=== PATIENT | female | born 1935 | race Caucasian/White ===

== ENCOUNTER 2018-03-10 01:20 | Inpatient (IN) ==
--- NOTE | 2018-03-10 01:30 | Emergency Department Note ---
Disposition Clinical Impression: Dyspnea Dementia Qualifiers: Dementia type: unspecified type Dementia behavioral disturbance: without behavioral disturbance Qualified Code(s): F03.90 - Unspecified dementia without behavioral disturbance Chest pain Qualifiers: Chest pain type: unspecified Qualified Code(s): R07.9 - Chest pain, unspecified Disposition: Admitted As Inpatient Condition: Good Referrals: Sunil Cobb MD [Primary Care Provider] - Forms: ED Satisfaction Letter Time of Disposition: 05:17 [facility] - General Chief Complaint: ED Shortness of Breath/Dyspnea Stated Complaint: chidi Time Seen by Provider: 03/10/18 01:22 Source: patient Mode of arrival: ambulatory Limitations: no limitations Nursing Notes Reviewed: Yes Vital Signs Reviewed: Yes - History of Present Illness Patient presents to the ED via EMS with the chief complaint of chest pain. States that she is been having intermittent retrosternal chest pain over the last couple of days. Unable to further describe. States it just hurts. Also complaining of feeling short of breath. Patient has a history of dementia and is hard of hearing so history is difficult and limited. Patient denies any pain currently. States she has been coughing. No abdominal pain or vomiting. No known fevers. - Related Data Home Medications Medication Instructions Recorded Confirmed Calcium Carbonate/Vitamin D3 1 each PO DAILY 03/20/15 03/20/15 [Calcium 600 + D Tablet] Multivitamin [Flintstones] 1 each PO DAILY 03/20/15 03/20/15 Previous Rx's Medication Instructions Recorded Fluticasone Propionate Nasal 2 spray IN DAILY #1 unit 03/21/15 [Flonase] Omeprazole [PriLOSEC] 20 mg PO DAILY #30 capsule. 03/21/15 Allergies Allergy/AdvReac Type Severity Reaction Status Date / Time No Known Allergies Allergy Verified 03/20/15 08:48 Review of Systems: As reviewed in the HPI. All other systems reviewed are negative or normal. Past Medical History - Past Medical History Attestation: Yes The following information was validated with the patient. 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 - Social History Smoking Status: Former smoker Smokeless Tobacco Status: No Alcohol use: Reports: none Drug use: Reports: none Physical Exam CONSTITUTIONAL: [well appearing in no acute distress] SKIN: [Warm, dry, and intact without rash] EYES: [extraocular movements are grossly intact, clear conjunctiva] HENT: [Normocephalic, atraumatic, moist mucus membranes] NECK: [no obvious swelling, normal range of motion] PULMONARY: [normal chest rise and fall, no respiratory distress or stridor CARDIOVASCULAR: [regular rate, distal extremities are warm and well perfused] GASTROINSTESTINAL: [nondistended, non-tender] GENITOURINARY: [deferred] NEUROLOGIC: [normal speech, moves all extremities, GCS 15, alert and oriented 2 ] MUSCULOSKELETAL: [no gross deformities, atraumatic] PSYCHIATRIC: [normal mood and affect] Course - Reevaluation(s) Reevaluation #1: patient workup looks ok. Will admit for further eval including likely echo. Vital Signs Temperature 98.2 F 03/10/18 01:23 Pulse Rate 77 03/10/18 01:23 Respiratory Rate 16 03/10/18 01:23 Blood Pressure 157/87 03/10/18 01:23 O2 Sat by Pulse Oximetry 97 03/10/18 01:23 Temperature 98.2 F 03/10/18 01:23 Pulse Rate 67 03/10/18 04:42 Respiratory Rate 17 03/10/18 04:42 Blood Pressure 169/80 03/10/18 04:42 O2 Sat by Pulse Oximetry 96 03/10/18 04:42 Oxygen Delivery Oxygen Delivery Room Air Shortness of Breath/Dyspnea - Medical Records Medical records reviewed: Yes I reviewed the patient's medical records. - Lab Data Lab results reviewed: Yes I reviewed the patient's lab results. Result diagrams: 03/10/18 01:53 03/10/18 01:53 Lab Results 03/10/18 03/10/18 03/10/18 Range/Units 01:53 01:53 01:53 WBC 5.3 (4.3-11.1) K/mcL RBC 3.88 (3.82-4.97) M/mcL Hgb 11.8 (11.5-15.4) g/dL Hct 35.3 (35.3-44.9) % MCV 91.0 (83.0-100.0) fL MCH 30.4 (28.0-33.3) pg MCHC 33.4 (31.6-35.5) g/dL RDW 13.2 (11.5-14.5) % Plt Count 250 (140-400) K/mcL MPV 9.0 L (9.4-12.4) fL Immature Gran % 0.4 (0-4) % Seg Neutrophils % 63.2 % Lymphocytes % 26.7 % Monocytes % 6.8 % Eosinophils % 2.5 % Basophils % 0.4 % Neutrophils # 3.3 (1.6-8.9) K/mcL Lymphocytes # 1.4 (0.6-4.6) K/mcL Monocytes # 0.4 (0.0-1.3) K/mcL Eosinophils # 0.1 (0.0-0.6) K/mcL Basophils # 0.0 (0.0-0.2) K/mcL PT 11.5 (9.4-12.1) Seconds INR 1.0 APTT 30.9 (26.0-36.0) Seconds Sodium 140 (136-145) mEq/L Potassium 3.2 L (3.5-5.1) mEq/L Chloride 107 (98-107) mEq/L Carbon Dioxide 25 (23-29) mEq/L BUN 13 (8-23) mg/dL Creatinine 0.70 (0.60-1.20) mg/dL Est GFR ( Amer) > 60 (> 60) Est GFR (Non-Af Amer) > 60 (> 60) BUN/Creatinine Ratio 19 (6-26) Glucose 97 (70-105) mg/dL Calculated Osmolality 290 (280-300) Lactic Acid (0.5-2.2) mmol/L Calcium 9.1 (8.6-10.3) mg/dL Troponin I < 0.03 (< 0.04) ng/mL B-Natriuretic Peptide (Less than 100) pg/mL Urine Color (Yellow) Urine Clarity (Clear) Urine pH (5.0-8.0) pH Units Ur Specific [place] (1.010-1.025) Urine Protein (Neg-Trace) mg/dL Urine Glucose (UA) (Normal) mg/dL Urine Ketones (Negative) mg/dL Urine Blood (Negative) Urine Nitrite (Negative) Urine Bilirubin (Negative) Urine Urobilinogen (Normal) mg/dL Ur Leukocyte Esterase (Negative) Urine Microscopic RBC (0-3) per hpf Urine Microscopic WBC (0-3) per hpf Ur Squamous Epith Cells (None-Few) per lpf Urine Bacteria (None-Few) per hpf Hyaline Casts (None-Few) per lpf Ur Culture Indicated? (NO) 03/10/18 03/10/18 03/10/18 Range/Units 01:53 01:53 02:38 WBC (4.3-11.1) K/mcL RBC (3.82-4.97) M/mcL Hgb (11.5-15.4) g/dL Hct (35.3-44.9) % MCV (83.0-100.0) fL MCH (28.0-33.3) pg MCHC (31.6-35.5) g/dL RDW (11.5-14.5) % Plt Count (140-400) K/mcL MPV (9.4-12.4) fL Immature Gran % (0-4) % Seg Neutrophils % % Lymphocytes % % Monocytes % % Eosinophils % % Basophils % % Neutrophils # (1.6-8.9) K/mcL Lymphocytes # (0.6-4.6) K/mcL Monocytes # (0.0-1.3) K/mcL Eosinophils # (0.0-0.6) K/mcL Basophils # (0.0-0.2) K/mcL PT (9.4-12.1) Seconds INR APTT (26.0-36.0) Seconds Sodium (136-145) mEq/L Potassium (3.5-5.1) mEq/L Chloride (98-107) mEq/L Carbon Dioxide (23-29) mEq/L BUN (8-23) mg/dL Creatinine (0.60-1.20) mg/dL Est GFR ( Amer) (> 60) Est GFR (Non-Af Amer) (> 60) BUN/Creatinine Ratio (6-26) Glucose (70-105) mg/dL Calculated Osmolality (280-300) Lactic Acid 0.8 (0.5-2.2) mmol/L Calcium (8.6-10.3) mg/dL Troponin I (< 0.04) ng/mL B-Natriuretic Peptide 140 H (Less than 100) pg/mL Urine Color Yellow (Yellow) Urine Clarity Clear (Clear) Urine pH 6.0 (5.0-8.0) pH Units Ur Specific [place] 1.016 (1.010-1.025) Urine Protein Negative (Neg-Trace) mg/dL Urine Glucose (UA) Normal (Normal) mg/dL Urine Ketones Trace H (Negative) mg/dL Urine Blood Trace H (Negative) Urine Nitrite Negative (Negative) Urine Bilirubin Negative (Negative) Urine Urobilinogen Normal (Normal) mg/dL Ur Leukocyte Esterase Small H (Negative) Urine Microscopic RBC 5-15 H (0-3) per hpf Urine Microscopic WBC 5-15 H (0-3) per hpf Ur Squamous Epith Cells Moderate H (None-Few) per lpf Urine Bacteria None Seen (None-Few) per hpf Hyaline Casts None Seen (None-Few) per lpf Ur Culture Indicated? YES A (NO) - Radiology Data Radiology results reviewed: Yes I reviewed the patient's radiology results. - EKG Data EKG attestation: Yes I reviewed and interpreted this EKG. EKG results narrative: Sinus rhythm, rate 73, ST segment elevation anteriorly that is similar in morphology to previous consistent with LVH, ventricular conduction delay
[2018-03-10 02:06] LABS: Basophils % 0.4 %; Eosinophils # 0.1 K/mcL (0.0-0.6); Eosinophils % 2.5 %; Hematocrit 35.3 % (35.3-44.9); Hemoglobin 11.8 g/dL (11.5-15.4); Immature Granulocytes % 0.4 % (0-4); Lymphocytes # 1.4 K/mcL (0.6-4.6); Lymphocytes % 26.7 %; Mean Corpuscular HGB Conc 33.4 g/dL (31.6-35.5); Mean Corpuscular Hemoglobin 30.4 pg (28.0-33.3); Monocytes # 0.4 K/mcL (0.0-1.3); Monocytes % 6.8 %; Neutrophils # 3.3 K/mcL (1.6-8.9); Platelet Count 250 K/mcL (140-400); Red Blood Count 3.88 M/mcL (3.82-4.97); Red Cell Distribution Width 13.2 % (11.5-14.5); Segmented Neutrophils % 63.2 %
[2018-03-10 02:11] LABS: Prothrombin Time 11.5 Seconds (9.4-12.1)
[2018-03-10 02:14] LABS: Activated Partial Thrombo Time 30.9 Seconds (26.0-36.0)
[2018-03-10 02:28] LABS: BUN/Creatinine Ratio 19 (6-26); Blood Urea Nitrogen 13 mg/dL (8-23); Calcium 9.1 mg/dL (8.6-10.3); Carbon Dioxide 25 mEq/L (23-29); Chloride 107 mEq/L (98-107); Glucose 97 mg/dL (70-105); Osmolality,Calculated 290 (280-300); Potassium 3.2 mEq/L (3.5-5.1); Sodium 140 mEq/L (136-145); eGFR For Non-African Americans > 60 (> 60)
[2018-03-10 02:29] LABS: Troponin I < 0.03 ng/mL (< 0.04)
[2018-03-10 02:47] LABS: Bilirubin,Urine Negative (Negative); Blood,Urine Trace (Negative); Clarity,Urine Clear (Clear); Color,Urine Yellow (Yellow); Glucose,Urine (UA) Normal (Normal); Ketones,Urine Trace mg/dL (Negative); Leukocyte Esterase,Urine Small (Negative); Nitrite,Urine Negative (Negative); Protein,Urine Negative (Neg-Trace); Specific Gravity,Urine 1.016 (1.010-1.025); Urobilinogen,Urine Normal (Normal)
[2018-03-10 02:50] LABS: Bacteria,Urine None Seen per hpf (None-Few); Hyaline Casts,Urine None Seen per lpf (None-Few); Squamous Epithelial Cell,Urine Moderate per lpf (None-Few)
[2018-03-10] MEDS ORDERED: Naloxone 0.4 MG/ML INJ IVP PRN (06:07)
--- NOTE | 2018-03-10 06:09 | Emergency Department Note ---
Disposition Clinical Impression: Dyspnea Dementia Qualifiers: Dementia type: unspecified type Dementia behavioral disturbance: without behavioral disturbance Qualified Code(s): F03.90 - Unspecified dementia without behavioral disturbance Chest pain Qualifiers: Chest pain type: unspecified Qualified Code(s): R07.9 - Chest pain, unspecified Disposition: Admitted As Inpatient Condition: Good General Adult HPI - General Chief complaint: ED Shortness of Breath/Dyspnea Stated complaint: chidi Time Seen by Provider: 03/10/18 01:22 Source: patient Mode of arrival: ambulatory Limitations: no limitations Nursing Notes Reviewed: Yes Vital Signs Reviewed: Yes - History of Present Illness Pain Scale: 0 - Related Data Home Medications Medication Instructions Recorded Confirmed Calcium Carbonate/Vitamin D3 1 each PO DAILY 03/20/15 03/20/15 [Calcium 600 + D Tablet] Multivitamin [Flintstones] 1 each PO DAILY 03/20/15 03/20/15 Previous Rx's Medication Instructions Recorded Fluticasone Propionate Nasal 2 spray IN DAILY #1 unit 03/21/15 [Flonase] Omeprazole [PriLOSEC] 20 mg PO DAILY #30 capsule. 03/21/15 Allergies Allergy/AdvReac Type Severity Reaction Status Date / Time No Known Allergies Allergy Verified 03/20/15 08:48 Past Medical History - Past Medical History Medical history: Reports: dementia, osteoporosis, other Surgical history: Reports: hip replacement Psychiatric history: Reports: no psych history [employer] history: Reports: no [employer] history - Social History Smoking Status: Former smoker Smokeless Tobacco Status: No Alcohol use: Reports: none Drug use: Reports: none Physical Exam - General Limitations: no limitations General appearance: alert, in no apparent distress Course Vital Signs Temperature 98.2 F 03/10/18 01:23 Pulse Rate 77 03/10/18 01:23 Respiratory Rate 16 03/10/18 01:23 Blood Pressure 157/87 03/10/18 01:23 O2 Sat by Pulse Oximetry 97 03/10/18 01:23 Temperature 98.2 F 03/10/18 01:23 Pulse Rate 67 03/10/18 04:42 Respiratory Rate 15 03/10/18 05:39 Blood Pressure 143/67 03/10/18 05:39 O2 Sat by Pulse Oximetry 96 03/10/18 04:42 Oxygen Delivery Oxygen Delivery Room Air Medical Decision Making - Medical Records Medical records reviewed: Yes I reviewed the patient's medical records. - Lab Data Lab results reviewed: Yes I reviewed the patient's lab results. Result diagrams: 03/10/18 01:53 03/10/18 01:53 Lab Results 03/10/18 03/10/18 03/10/18 Range/Units 01:53 01:53 01:53 WBC 5.3 (4.3-11.1) K/mcL RBC 3.88 (3.82-4.97) M/mcL Hgb 11.8 (11.5-15.4) g/dL Hct 35.3 (35.3-44.9) % MCV 91.0 (83.0-100.0) fL MCH 30.4 (28.0-33.3) pg MCHC 33.4 (31.6-35.5) g/dL RDW 13.2 (11.5-14.5) % Plt Count 250 (140-400) K/mcL MPV 9.0 L (9.4-12.4) fL Immature Gran % 0.4 (0-4) % Seg Neutrophils % 63.2 % Lymphocytes % 26.7 % Monocytes % 6.8 % Eosinophils % 2.5 % Basophils % 0.4 % Neutrophils # 3.3 (1.6-8.9) K/mcL Lymphocytes # 1.4 (0.6-4.6) K/mcL Monocytes # 0.4 (0.0-1.3) K/mcL Eosinophils # 0.1 (0.0-0.6) K/mcL Basophils # 0.0 (0.0-0.2) K/mcL PT 11.5 (9.4-12.1) Seconds INR 1.0 APTT 30.9 (26.0-36.0) Seconds Sodium 140 (136-145) mEq/L Potassium 3.2 L (3.5-5.1) mEq/L Chloride 107 (98-107) mEq/L Carbon Dioxide 25 (23-29) mEq/L BUN 13 (8-23) mg/dL Creatinine 0.70 (0.60-1.20) mg/dL Est GFR ( Amer) > 60 (> 60) Est GFR (Non-Af Amer) > 60 (> 60) BUN/Creatinine Ratio 19 (6-26) Glucose 97 (70-105) mg/dL Calculated Osmolality 290 (280-300) Lactic Acid (0.5-2.2) mmol/L Calcium 9.1 (8.6-10.3) mg/dL Troponin I < 0.03 (< 0.04) ng/mL B-Natriuretic Peptide (Less than 100) pg/mL Urine Color (Yellow) Urine Clarity (Clear) Urine pH (5.0-8.0) pH Units Ur Specific [place] (1.010-1.025) Urine Protein (Neg-Trace) mg/dL Urine Glucose (UA) (Normal) mg/dL Urine Ketones (Negative) mg/dL Urine Blood (Negative) Urine Nitrite (Negative) Urine Bilirubin (Negative) Urine Urobilinogen (Normal) mg/dL Ur Leukocyte Esterase (Negative) Urine Microscopic RBC (0-3) per hpf Urine Microscopic WBC (0-3) per hpf Ur Squamous Epith Cells (None-Few) per lpf Urine Bacteria (None-Few) per hpf Hyaline Casts (None-Few) per lpf Ur Culture Indicated? (NO) 03/10/18 03/10/18 03/10/18 Range/Units 01:53 01:53 02:38 WBC (4.3-11.1) K/mcL RBC (3.82-4.97) M/mcL Hgb (11.5-15.4) g/dL Hct (35.3-44.9) % MCV (83.0-100.0) fL MCH (28.0-33.3) pg MCHC (31.6-35.5) g/dL RDW (11.5-14.5) % Plt Count (140-400) K/mcL MPV (9.4-12.4) fL Immature Gran % (0-4) % Seg Neutrophils % % Lymphocytes % % Monocytes % % Eosinophils % % Basophils % % Neutrophils # (1.6-8.9) K/mcL Lymphocytes # (0.6-4.6) K/mcL Monocytes # (0.0-1.3) K/mcL Eosinophils # (0.0-0.6) K/mcL Basophils # (0.0-0.2) K/mcL PT (9.4-12.1) Seconds INR APTT (26.0-36.0) Seconds Sodium (136-145) mEq/L Potassium (3.5-5.1) mEq/L Chloride (98-107) mEq/L Carbon Dioxide (23-29) mEq/L BUN (8-23) mg/dL Creatinine (0.60-1.20) mg/dL Est GFR ( Amer) (> 60) Est GFR (Non-Af Amer) (> 60) BUN/Creatinine Ratio (6-26) Glucose (70-105) mg/dL Calculated Osmolality (280-300) Lactic Acid 0.8 (0.5-2.2) mmol/L Calcium (8.6-10.3) mg/dL Troponin I (< 0.04) ng/mL B-Natriuretic Peptide 140 H (Less than 100) pg/mL Urine Color Yellow (Yellow) Urine Clarity Clear (Clear) Urine pH 6.0 (5.0-8.0) pH Units Ur Specific [place] 1.016 (1.010-1.025) Urine Protein Negative (Neg-Trace) mg/dL Urine Glucose (UA) Normal (Normal) mg/dL Urine Ketones Trace H (Negative) mg/dL Urine Blood Trace H (Negative) Urine Nitrite Negative (Negative) Urine Bilirubin Negative (Negative) Urine Urobilinogen Normal (Normal) mg/dL Ur Leukocyte Esterase Small H (Negative) Urine Microscopic RBC 5-15 H (0-3) per hpf Urine Microscopic WBC 5-15 H (0-3) per hpf Ur Squamous Epith Cells Moderate H (None-Few) per lpf Urine Bacteria None Seen (None-Few) per hpf Hyaline Casts None Seen (None-Few) per lpf Ur Culture Indicated? YES A (NO) - Radiology Data Radiology results reviewed: Yes I reviewed the patient's radiology results. Chest X-Ray 03/10/18 01:27 IMPRESSION: No acute disease. D/ / Ramirez Arrieta MD / Ramirez Arrieta MD Interpreting Provider: Ramirez Arrieta MD - EKG Data EKG #1 EKG attestation: Yes I reviewed and interpreted this EKG. EKG results narrative: EKG shows a normal sinus rhythm with ventricular rate is 73. LVH with anterior ST segment elevation which is unchanged from prior EKG dated 04/10/2017. Attestation Statement - Attestation Attestation: I, Johnie Abreu MD, personally evaluated this patient and discussed their management with the resident physician. I reviewed the resident's note and agree with the documented findings, medical decision making, and plan of care. 82-year-old female presents to the emergency department with a complaint of having some increased shortness of breath and intermittent substernal chest pains for the past few days. No radiation of the pain. There has been a mild cough. No sputum. No fever. Chest pain comes and goes and does not seem to be related to exertion. On examination patient is a well-developed thin elderly female in no acute distress. She is alert and oriented but seems pleasantly confused. She is hard of hearing. There is no cyanosis or diaphoresis. Chest is nontender to palpation. Breath sounds are decreased but clear and equal bilaterally. Heart regular rate and rhythm. Abdomen soft and nontender with present bowel sounds. Labs reviewed. Troponin normal. Mildly elevated BNP. Chest x-ray negative. EKG shows no acute changes. The hospitalist, Dr. Saba, was consulted and accepted admission of the patient.
--- NOTE | 2018-03-10 06:24 | Internal Med History&Physical ---
Date of Encounter: 03/20/18 Time of Encounter: 06:15 Internal Medicine - H&P: HPI Chief complaint: Difficulty Breathing History of present illness: Ms. Eric is a 82 year old female with reported past medical history of dementia and osteoporosis. Patient is a poor historian given her baseline dementia and supporting medical records are sparse. Per the patient she states that she has been having intermittent episodes of difficulty breathing. She feels that at times her nose and nasal passages feel stuffed. However when asked if these episodes of dyspnea occur when she breathes through her nose versus her mouth, she says it is primarily when she breathes through her nose. Patient reportedly lives alone at home and had difficulty breathing earlier this evening and subsequently called EMS. Per ER nurse, when they arrived there was no one home and the patient was saturating at 99% on room air. Patient otherwise denies any cough, fever, chills, chest pain. Further denies any abdominal pain nausea, vomiting, diarrhea, dysuria. Patient states that her daughter works as a nurse in urgent care but is currently on vacation. Per the ER, there was reports of chest pain however the patient denied this. Review of her chest x-ray was unchanged from previous. Denies any previous history of smoking, alcohol or drug use. Patient uses a walker to ambulate. Past Med Surg Social Fam HX - Past Medical History Medical history: dementia, osteoporosis, other Additional medical history: broken wrist Psychiatric history: no psych history - Past Surgical History Surgical History: hip replacement Additional surgical history: unable to verbalize her surgical history - Social History Smoking Status: Former smoker Smokeless Tobacco Status: No Alcohol use: none Drug use: none - Family History Father Living Status: Hx Family Cardiac Disorders: Yes Internal Medicine - H&P: Meds Multivitamin [Flintstones] 1 tab PO DAILY 03/20/15 [History] Calcium Carb, Citrate/Vit D3 [Calcium + D3 ER Tablet] 1 tab PO DAILY 03/10/18 [ History] Haloperidol [Haldol] 0.5 mg PO BID PRN 7 Days #15 tablet 03/17/18 [Rx] Metoprolol [Lopressor] 12.5 mg PO BID tablet 03/17/18 [Rx] amLODIPine [Norvasc] 10 mg PO DAILY tablet 03/17/18 [Rx] risperiDONE [RisperDAL] 0.25 mg PO 0900 tablet 03/17/18 [Rx] risperiDONE [RisperDAL] 0.5 mg PO 1700 tablet 03/17/18 [Rx] 3 Allergy/AdvReac Type Severity Reaction Status Date / Time No Known Allergies Allergy Verified 03/20/15 08:48 All Systems PM: A 10-system review of systems was performed and is negative for pertinent findings except as documented above in the HPI. - Constitutional Constitutional: no chills, no fever(s), no night sweats - EENT Eyes: no change in vision, no discharge, no pain, no photophobia Ears: no ear discharge, no ear pain, no tinnitus Nose, mouth and throat: no dysphagia, no nasal discharge, no neck pain, no sore throat - Cardiovascular Cardiovascular ROS IM: no chest pain, no diaphoresis, no dyspnea, no lightheadedness, no palpitations, no syncope - Respiratory Respiratory: no cough, no dyspnea, no wheezing, no excessive phlegm production - Gastrointestinal Gastrointestinal: no abdominal pain, no diarrhea, no hematemesis, no hematochezia, no melena, no nausea, no vomiting - Genitourinary Genitourinary: no change in urinary stream, no dysuria, no flank pain, no hematuria - Musculoskeletal Musculoskeletal ROS IM: no numbness, no tingling - Integumentary Integumentary IM: no rash, no unusual bruising - Neurological Neurological ROS: no confusion, no convulsions, no focal weakness, no numbness, no tingling, no tremor(s) - Hematologic/Lymphatic Hematologic/Lymphatic: no easy bruising - Constitutional Exam: General: Pleasant elderly female lying in bed in no acute distress. Alert and oriented 1-2 Skin:Normal color, no rash, no lesions. HEENT:EOM, pupils equal, round and reactive. Cardiovascular:Normal S1 & S2, no rubs, 3/6 systolic murmur best appreciated in the fifth intercostal space. No JVD. Pulse regular. Lungs:Normal breath sounds, no wheezes or crackles. Abdomen:Soft, mildly distended, non-tender, no rigidity. Extremities:No deformity, no edema or tenderness, no joint swelling or clubbing. Neurological:Normal cognition and motor skills. Pulses:Carotid and radial pulses normal +2. Rest of the physical exam is non contributory Internal Med - H&P Results - Labs CBC & Chem 7: 08/24/18 04:22 03/14/18 04:22 - Assessment and plan (1) Dyspnea Status: Resolved Assessment and plan: No evidence of any acute lung disease. Lung exam and Chest x-ray normal. Patient satting 99% on room air. Systolic murmur heard best in the apex region a heart, there may be an underlying mitral valve regurgitation in the setting of LVH with high voltage QRS. Patient however denies any dyspnea with change in position. Patient likely complaining of upper airway congestion based on history, will order fluticasone nasal spray. Qualifiers: Dyspnea type: shortness of breath Qualified Code(s): R06.02 - Shortness of breath; R06.00 - Dyspnea, unspecified; R06.01 - Orthopnea (2) Chest pain Status: Ruled-out Assessment and plan: ER reports chest pain. However, patient denies any chest pain. No EKG changes were noted when compared to previous EKG. High voltage QRS complexes possibly suggestive of underlying left ventricular hypertrophy. The patients blood pressure was found to be elevated of 189/99. Possible mitral regurgitation appreciated on physical exam may be contributory. Patient may need outpatient echocardiogram Qualifiers: Chest pain type: unspecified Qualified Code(s): R07.9 - Chest pain, unspecified (3) Dementia Status: Chronic Assessment and plan: History of baseline dementia. Patient currently living at home alone. Given her condition she may not be a safe discharge and needs to be discussed with family. Will obtain director social service consult to evaluate living conditions in terms of safety. 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 Patient not currently not on any antihypertensives per records. We will start her on low-dose amlodipine and monitor. Qualifiers: Hypertension type: essential hypertension Qualified Code(s): I10 - Essential (primary) hypertension (5) Hypokalemia Status: Resolved - Time Spent With Patient Total time spent is greater than 50% in coordination of care (as documented) at patient's floor/unit and/or counseling patient: - Constitutional Vitals: Temp Pulse Resp BP Pulse Ox 98.2 F 67 15 143/67 96 03/10/18 01:23 03/10/18 04:42 03/10/18 05:39 03/10/18 05:39 03/10/18 04:42 Exam: General: Pleasant elderly female lying in bed in no acute distress. Alert and oriented 1-2 Skin:Normal color, no rash, no lesions. HEENT:EOM, pupils equal, round and reactive. Cardiovascular:Normal S1 & S2, no rubs, 3/6 systolic murmur best appreciated in the fifth intercostal space. No JVD. Pulse regular. Lungs:Normal breath sounds, no wheezes or crackles. Abdomen:Soft, mildly distended, non-tender, no rigidity. Extremities:No deformity, no edema or tenderness, no joint swelling or clubbing. Neurological:Normal cognition and motor skills. Pulses:Carotid and radial pulses normal +2. Rest of the physical exam is non contributory
[2018-03-10] MEDS: Potassium Citrate 10 MEQ TABLET.ER PO SCH (09:35)
[2018-03-10] MEDS: amLODIPine 5 MG TABLET PO SCH (09:35)
[2018-03-10] MEDS: Fluticasone Propionate Nasal 50 MCG/SPRAY BOTTLE NS SCH (09:35)
--- NOTE | 2018-03-10 15:39 | Electrocardiograph Report ---
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
--- NOTE | 2018-03-10 20:28 | Event Note ---
Date of Encounter: 03/10/18 Time of Encounter: 11:00 Patient seen and evaluated by nocturnalist earlier this morning and also by myself Patient is an 82-year-old female who presents breath shortness breath and chest pain here for ACS rule out; troponins negative and echocardiogram shows LVEF of 60% with mild left ventricular diastolic dysfunction. Nuclear medicine stress test ordered for ACS rule out. Physical therapy also consulted for home safety.
[2018-03-11] MEDS ORDERED: Haloperidol Lactate 5 MG/ML VIAL IVP ONE (01:46)
[2018-03-11] MEDS ORDERED: Regadenoson 0.4 MG/5 ML SYRINGE IVP ONE (05:29)
[2018-03-11 05:38] LABS: Hematocrit 38.4 % (35.3-44.9); Hemoglobin 12.6 g/dL (11.5-15.4); Mean Corpuscular HGB Conc 32.8 g/dL (31.6-35.5); Mean Corpuscular Hemoglobin 30.3 pg (28.0-33.3); Mean Corpuscular Volume 92.3 fL (83.0-100.0); Mean Platelet Volume 9.9 fL (9.4-12.4); Platelet Count 248 K/mcL (140-400); Red Blood Count 4.16 M/mcL (3.82-4.97); Red Cell Distribution Width 13.4 % (11.5-14.5)
[2018-03-11 06:07] LABS: Alanine Aminotransferase 10 Units/L (7-52); Albumin/Globulin Ratio 1.3 (1.1-2.2); Alkaline Phosphatase 67 Units/L (34-104); Aspartate Amino Transferase 18 Units/L (13-39); BUN/Creatinine Ratio 27 (6-26); Bilirubin,Total 0.8 mg/dL (0.3-1.0); Blood Urea Nitrogen 19 mg/dL (8-23); Calcium 9.3 mg/dL (8.6-10.3); Carbon Dioxide 23 mEq/L (23-29); Chloride 106 mEq/L (98-107); Globulin 3.2 g/dL (2.4-3.5); Glucose 129 mg/dL (70-105); Osmolality,Calculated 290 (280-300); Potassium 3.8 mEq/L (3.5-5.1); Sodium 138 mEq/L (136-145); Total Protein 7.2 g/dL (6.4-8.9); eGFR For Non-African Americans > 60 (> 60)
[2018-03-11] MEDS: Cholecalciferol (D-3) 1,000 UNIT TABLET PO SCH (08:08)
[2018-03-11] MEDS: amLODIPine 5 MG TABLET PO SCH ×2 (08:08→16:43)
[2018-03-11] MEDS: Fluticasone Propionate Nasal 50 MCG/SPRAY BOTTLE NS SCH (08:08)
[2018-03-11] MEDS: Potassium Citrate 10 MEQ TABLET.ER PO SCH (08:08)
[2018-03-11] MEDS: Multivit/Ca/Min/Fe/FA 1 TAB TABLET PO SCH (08:08)
--- NOTE | 2018-03-11 16:32 | Internal Med Progress Note ---
Hospitalist Progress Note - Encounter Date of Encounter: 03/11/18 Time of Encounter: 09:45 - Subjective Interval History: Patient reports feeling well. No chest pain or shortness of breath, feels at baseline currently. Unable to provide detailed history due to underlying dementia and memory issues. Plan of care discussed with patient's son at bedside. - Exam Vitals: Temp Pulse Resp BP Pulse Ox 97.8 F 93 16 197/91 96 03/11/18 15:06 03/11/18 15:06 03/11/18 15:06 03/11/18 15:06 03/11/18 15:06 Exam: General: Frail elderly female sitting up in bed in no acute distress Chest: Normal thoracic expansion. Normal breath sounds. Clear to auscultation. Heart: Normal S1 & S2; rhythmic. No rubs or murmurs. Abdomen: Non-distended, soft and nontender Neurological: Awake, alert and oriented to person but not to place and time. No focal deficits. Short term memory impairment; - Assessment and Plan (1) Chest pain Current Visit: Yes Status: Ruled-out Assessment and Plan: Patient apparently reported chest pain in the emergency room, did not report to admitting hospitalist or to me. Currently not noted to be in distress. Telemetry and serial troponins unremarkable. Refused nuclear stress test, will defer this at this time. (2) Dementia Current Visit: Yes Status: Chronic Assessment and Plan: Patient seems to have underlying dementia with significant memory impairment, confusion and hallucinations. She lives alone at home at this time. Discussed with son, who is very concerned about her safety. There have been several instances of patient wandering outside of her home, confused and staggering and the son has received calls from the oil field worker several times. She is also not oriented to time and place. She has hallucinations about some men raping her last night in the hospital. Physical and occupational therapy evaluation. director of casework services consulted for possible placement for patient safety. (3) Dyspnea Current Visit: Yes Status: Acute Assessment and Plan: Uncertain etiology. Does not have history of COPD/asthma/CHF. Does not follow with PCP, not on any home medications. Per previous records, patient has chronic issues with postnasal drip and possibly sinus problems for which she needs outpatient ENT follow-up. She is currently breathing well, saturating well on room air. Continue to monitor closely. (4) Hypertension Current Visit: Yes Status: Chronic Assessment and Plan: Patient is noncompliant with medications. Noted to have uncontrolled hypertension. Started on Norvasc but continues to have high blood pressure. We will start low-dose metoprolol. Will use when necessary IV hydralazine for appropriate blood pressure control. (5) Hypokalemia Current Visit: Yes Status: Resolved DVT Prophylaxis: On subcutaneous heparin - Time Spent with Patient Total time spent is greater than 50% in coordination of care (as documented) at patient's floor/unit and/or counseling patient: Plan of Care Discussed with: family Internal Medicine: Result - Labs CBC & Chem 7: 03/11/18 04:46 03/11/18 04:46 Labs: Short CBC 03/11/18 Range/Units 04:46 WBC 7.7 (4.3-11.1) K/mcL Hgb 12.6 (11.5-15.4) g/dL Hct 38.4 (35.3-44.9) % Plt Count 248 (140-400) K/mcL BMP 03/11/18 04:46 Sodium 138 Potassium 3.8 Chloride 106 Carbon Dioxide 23 BUN 19 Creatinine 0.70 Glucose 129 H Calcium 9.3 Liver Function 03/11/18 Range/Units 04:46 Total Bilirubin 0.8 (0.3-1.0) mg/dL AST 18 (13-39) Units/L ALT 10 (7-52) Units/L Alkaline Phosphatase 67 (34-104) Units/L Albumin 4.0 (3.5-5.7) g/dL - ABG Interpretation ABG results: PT/INR, D-dimer PT 11.5 Seconds (9.4-12.1) 03/10/18 01:53 Consult Discharge Plan - Plan Referrals: Sunil Cobb MD [Primary Care Provider] - (1) Chest pain Qualifiers: Chest pain type: unspecified Qualified Code(s): R07.9 - Chest pain, unspecified (2) Dementia Qualifiers: Dementia type: Alzheimer's disease Alzheimer's disease onset: late-onset Dementia behavioral disturbance: with behavioral disturbance Qualified Code(s) : G30.1 - Alzheimer's disease with late onset; F02.81 - Dementia in other diseases classified elsewhere with behavioral disturbance (3) Dyspnea Qualifiers: Dyspnea type: shortness of breath Qualified Code(s): R06.02 - Shortness of breath; R06.00 - Dyspnea, unspecified; R06.01 - Orthopnea (4) Hypertension Qualifiers: Hypertension type: essential hypertension Qualified Code(s): I10 - Essential (primary) hypertension
[2018-03-11] MEDS: *HR* Heparin 5,000 UNIT/ML VIAL SQ SCH (16:53)
[2018-03-11] MEDS ORDERED: *HR* LORazepam 2 MG/ML VIAL IVP ONE (17:14)
[2018-03-11] MEDS ORDERED: Ziprasidone injection 20 MG/ML VIAL IM ONE (17:50)
[2018-03-11] MEDS ORDERED: *HR* LORazepam 0.5 MG TABLET PO ONE (21:40)
[2018-03-12] MEDS: *HR* Heparin 5,000 UNIT/ML VIAL SQ SCH ×2 (05:49→18:39)
[2018-03-12] MEDS: Fluticasone Propionate Nasal 50 MCG/SPRAY BOTTLE NS SCH (09:04)
[2018-03-12] MEDS: Cholecalciferol (D-3) 1,000 UNIT TABLET PO SCH (09:09)
[2018-03-12] MEDS: Multivit/Ca/Min/Fe/FA 1 TAB TABLET PO SCH (09:09)
[2018-03-12] MEDS: amLODIPine 5 MG TABLET PO SCH (09:09)
--- NOTE | 2018-03-12 15:56 | Internal Med Progress Note ---
Hospitalist Progress Note - Encounter Date of Encounter: 03/12/18 Time of Encounter: 10:00 - Subjective Interval History: Per RN notes, has been extremely agitated and combative yesterday, slapped the nursing staff, until she received Geodon, after which she settled down; she is with 1:1 sitter now, but noted to be calm and sitting up in bed; tolerates diet; denies complaints; awaiting rehab placement; - Exam Vitals: Temp Pulse Resp BP Pulse Ox 98.6 F 84 16 146/91 95 03/12/18 08:33 03/12/18 08:33 03/12/18 08:33 03/12/18 08:33 03/12/18 08:33 Exam: General: Frail elderly female sitting up in bed in no acute distress Chest: Normal thoracic expansion. Normal breath sounds. Clear to auscultation. Heart: Normal S1 & S2; rhythmic. No rubs or murmurs. Abdomen: Non-distended, soft and nontender Neurological: Awake, alert and oriented to person but not to place and time. No focal deficits. Short term memory impairment; - Assessment and Plan (1) Chest pain Current Visit: Yes Status: Ruled-out (2) Dementia Current Visit: Yes Status: Chronic Assessment and Plan: Patient seems to have underlying dementia with significant memory impairment, confusion and hallucinations. She lives alone at home at this time. She is also not oriented to time and place. She has frequent hallucinations, delusions , and aggressive behaviour; continue supportive care, 1:1 sitter for safety, will start low dose Risperidone ; Physical and occupational therapy evaluation recommends home with 24hour supervision, which is not an option for this patient. She requires placement in a closed unit due to h/o- wandering and confusion. business services manager on board for placement for patient safety. (3) Dyspnea Current Visit: Yes Status: Resolved Assessment and Plan: Uncertain etiology. Does not have history of COPD/asthma/CHF. Does not follow with PCP, not on any home medications. Per previous records, patient has chronic issues with postnasal drip and possibly sinus problems for which she needs outpatient ENT follow-up. She is currently breathing well, saturating well on room air. Continue to monitor closely. (4) Hypertension Current Visit: Yes Status: Chronic Assessment and Plan: Patient is noncompliant with medications. BP is much better controlled; continue current regimen; Will use when necessary IV hydralazine for appropriate blood pressure control. (5) Hypokalemia Current Visit: Yes Status: Resolved DVT Prophylaxis: On subcutaneous heparin - Time Spent with Patient Total time spent is greater than 50% in coordination of care (as documented) at patient's floor/unit and/or counseling patient: Plan of Care Discussed with: case management Internal Medicine: Result - Labs CBC & Chem 7: 03/11/18 04:46 03/11/18 04:46 - ABG Interpretation ABG results: PT/INR, D-dimer PT 11.5 Seconds (9.4-12.1) 03/10/18 01:53 Consult Discharge Plan - Plan Referrals: Sunil Cobb MD [Primary Care Provider] - (1) Chest pain Qualifiers: Chest pain type: unspecified Qualified Code(s): R07.9 - Chest pain, unspecified (2) Dementia Qualifiers: Dementia type: Alzheimer's disease Alzheimer's disease onset: late-onset Dementia behavioral disturbance: with behavioral disturbance Qualified Code(s) : G30.1 - Alzheimer's disease with late onset; F02.81 - Dementia in other diseases classified elsewhere with behavioral disturbance (3) Dyspnea Qualifiers: Dyspnea type: shortness of breath Qualified Code(s): R06.02 - Shortness of breath; R06.00 - Dyspnea, unspecified; R06.01 - Orthopnea (4) Hypertension Qualifiers: Hypertension type: essential hypertension Qualified Code(s): I10 - Essential (primary) hypertension
[2018-03-12] MEDS: risperiDONE 0.25 MG TABLET PO SCH (20:25)
[2018-03-12] MEDS ORDERED: risperiDONE 0.25 MG TABLET PO SCH (21:00)
[2018-03-13] MEDS: *HR* Heparin 5,000 UNIT/ML VIAL SQ SCH ×2 (04:49→17:05)
[2018-03-13] MEDS: Multivit/Ca/Min/Fe/FA 1 TAB TABLET PO SCH (10:09)
[2018-03-13] MEDS: risperiDONE 0.25 MG TABLET PO SCH ×2 (10:09→22:02)
[2018-03-13] MEDS: amLODIPine 5 MG TABLET PO SCH (10:09)
[2018-03-13] MEDS: Cholecalciferol (D-3) 1,000 UNIT TABLET PO SCH (10:10)
[2018-03-13] MEDS: Fluticasone Propionate Nasal 50 MCG/SPRAY BOTTLE NS SCH (10:10)
--- NOTE | 2018-03-13 16:36 | Internal Med Progress Note ---
<Leonela Knott - Last Filed: 03/13/18 17:06> Hospitalist Progress Note - Encounter Date of Encounter: 03/13/18 Time of Encounter: 16:31 - Subjective Interval History: 82 y/o female with history of dementia with acute decrease in memory and new on set behaviors. She believes that she is in "house of sin" and that I am a prostitute. Per sitter, she has remained altered. She did not sleep last night but ate breakfast. Unable to obtain ROS due to AMS. - Exam Vitals: Temp Pulse Resp BP Pulse Ox 98.7 F 100 16 176/93 95 03/13/18 16:20 03/13/18 16:20 03/13/18 16:20 03/13/18 16:20 03/13/18 16:20 Exam: General : agitated, not orientated to place Cardiac: RRR no murmurs or gallop Respiratory: CTAB no wheeze or rales Abdomen: Soft, not distended, no tenderness, no masses or organomegaly Extremities: pulses intact, no pedal edema Psych: delusional, loud rapid speech, not aggressive at this time - Assessment and Plan (1) Psychosis Current Visit: Yes Status: Acute Assessment and Plan: new onset delusion with out organic cause: last WBC 7.7, chest x-ray no acute, UA unconvincing and urine culture grew contaminates- repeat CBC and CMP - consulted psych - risperidone bid - hadol prn - sitter as needed but plan to remove sitter 24 hrs before discharge (2) Dementia Current Visit: Yes Status: Chronic Assessment and Plan: per daughter patient follows at [facility], she has had memory changes for many years worse in fall and winter - encourage sitting by window during day to promote day-night cycle (3) Hypertension Current Visit: Yes Status: Chronic Assessment and Plan: continue Metoprolol and norvasc with prn hydralazine DVT Prophylaxis: On subcutaneous heparin - Summary of Assessment and Plan Summary of Assessment and Plan: goal to stabilize behaviors in order to make safe for placement or discharge last least after Saturday - Time Spent with Patient Total time spent is greater than 50% in coordination of care (as documented) at patient's floor/unit and/or counseling patient: Greater than 35 minutes Plan of Care Discussed with: family Internal Medicine: Result - Labs CBC & Chem 7: 03/11/18 04:46 03/11/18 04:46 - ABG Interpretation ABG results: PT/INR, D-dimer PT 11.5 Seconds (9.4-12.1) 03/10/18 01:53 Consult Discharge Plan - Plan Referrals: Sunil Cobb MD [Primary Care Provider] - <Nader Bardales - Last Filed: 03/13/18 17:33> Hospitalist Progress Note - Encounter Date of Encounter: 03/13/18 - Exam Vitals: Temp Pulse Resp BP Pulse Ox 98.7 F 100 16 176/93 95 03/13/18 16:20 03/13/18 16:20 03/13/18 16:20 03/13/18 16:20 03/13/18 16:20 - Assessment and Plan (1) Chest pain Current Visit: Yes Status: Ruled-out (2) Dementia Current Visit: Yes Status: Chronic (3) Dyspnea Current Visit: Yes Status: Resolved (4) Hypertension Current Visit: Yes Status: Chronic (5) Hypokalemia Current Visit: Yes Status: Resolved - Time Spent with Patient Total time spent is greater than 50% in coordination of care (as documented) at patient's floor/unit and/or counseling patient: Internal Medicine: Result - Labs CBC & Chem 7: 03/11/18 04:46 03/11/18 04:46 - ABG Interpretation ABG results: PT/INR, D-dimer PT 11.5 Seconds (9.4-12.1) 03/10/18 01:53 - Attending Attestation I examined this patient and my medical decision-making was reviewed with the Resident Physician Dr. Knott. I agree with the documented findings, disposition and treatment plan as described except to the extent set forth below. Ms. Eric is a 82 y/o F with dementia admitted here for acute delirium / psychosis mostly due to worsening dementia. She is alert, awake and Oriented to selg and person only. Still looks confused. Gen : A, A, O to self Heart: S1S2 + RRR No murmurs Chest : diminished BS Psch: confused / altered a/p 1. Acute Delirium due to advanced dementia 2. Acute psychosis / behavioral problem with dementia Psych consulted started on Haldol PRN talked to pt's family at bed side and exaplined to them about current care pt is not safe to go home since she lives by herself <Leonela Knott - Last Filed: 03/13/18 17:06> (2) Dementia Qualifiers: Dementia type: Alzheimer's disease Alzheimer's disease onset: late-onset Dementia behavioral disturbance: with behavioral disturbance Qualified Code(s) : G30.1 - Alzheimer's disease with late onset; F02.81 - Dementia in other diseases classified elsewhere with behavioral disturbance (3) Hypertension Qualifiers: Hypertension type: essential hypertension Qualified Code(s): I10 - Essential (primary) hypertension <Nader Bardales - Last Filed: 03/13/18 17:33> (1) Chest pain Qualifiers: Chest pain type: unspecified Qualified Code(s): R07.9 - Chest pain, unspecified (2) Dementia Qualifiers: Dementia type: Alzheimer's disease Alzheimer's disease onset: late-onset Dementia behavioral disturbance: with behavioral disturbance Qualified Code(s) : G30.1 - Alzheimer's disease with late onset; F02.81 - Dementia in other diseases classified elsewhere with behavioral disturbance (3) Dyspnea Qualifiers: Dyspnea type: shortness of breath Qualified Code(s): R06.02 - Shortness of breath; R06.00 - Dyspnea, unspecified; R06.01 - Orthopnea (4) Hypertension Qualifiers: Hypertension type: essential hypertension Qualified Code(s): I10 - Essential (primary) hypertension
[2018-03-13] MEDS: Haloperidol Lactate 5 MG/ML VIAL IVP PRN (22:46)
[2018-03-14] MEDS: *HR* Heparin 5,000 UNIT/ML VIAL SQ SCH ×2 (04:33→16:53)
[2018-03-14 04:43] LABS: Basophils % 0.4 %; Eosinophils # 0.1 K/mcL (0.0-0.6); Hematocrit 31.6 % (35.3-44.9); Lymphocytes # 1.1 K/mcL (0.6-4.6); Mean Corpuscular HGB Conc 33.9 g/dL (31.6-35.5); Mean Corpuscular Hemoglobin 30.2 pg (28.0-33.3); Mean Corpuscular Volume 89.3 fL (83.0-100.0); Mean Platelet Volume 9.3 fL (9.4-12.4); Monocytes # 0.5 K/mcL (0.0-1.3); Neutrophils # 3.4 K/mcL (1.6-8.9); Platelet Count 229 K/mcL (140-400); Red Blood Count 3.54 M/mcL (3.82-4.97); Red Cell Distribution Width 13.6 % (11.5-14.5); Segmented Neutrophils % 66.6 %
[2018-03-14 04:52] LABS: Hemoglobin 10.7 g/dL (11.5-15.4)
[2018-03-14 05:03] LABS: BUN/Creatinine Ratio 34 (6-26); Blood Urea Nitrogen 25 mg/dL (8-23); Carbon Dioxide 27 mEq/L (23-29); Chloride 107 mEq/L (98-107); Glucose 111 mg/dL (70-105); Osmolality,Calculated 293 (280-300); Potassium 4.1 mEq/L (3.5-5.1); Sodium 139 mEq/L (136-145); eGFR For Non-African Americans > 60 (> 60)
--- NOTE | 2018-03-14 08:43 | Internal Med Progress Note ---
<Leonela Knott - Last Filed: 03/14/18 13:40> Hospitalist Progress Note - Encounter Date of Encounter: 03/14/18 Time of Encounter: 13:45 - Subjective Interval History: 82 y/o female with history of dementia with acute decrease in memory and new on set behaviors. She denies pain but admits to"just no feeling well" . Per sitter she slept for 1-2 hours last night. She is eating well. After several minutes she decided it was 2017 or 2017 and November or December. She knew she was in [place] but couldn't identify this as a hospital or remonstrate understanding of why she is here. Unable to obtain ROS due to AMS. - Exam Vitals: Temp Pulse Resp BP Pulse Ox 98.8 F 79 16 130/70 95 03/14/18 07:26 03/14/18 07:26 03/14/18 07:26 03/14/18 07:26 03/14/18 07:26 Exam: General : pleasant, in no acute distress, alert to self Cardiac: RRR no murmurs or gallop Respiratory: CTAB no wheeze or rales Abdomen: Soft, not distended, no tenderness, no masses or organomegaly Extremities: pulses intact, no pedal edema Mouthl: mucous membranes dry - Assessment and Plan (1) Psychosis Current Visit: Yes Status: Acute Assessment and Plan: new onset delusion with out organic cause: last WBC 5.1, chest x-ray no acute, UA on admit was unconvincing and urine culture grew contaminates. - consulted psych- appreciate increase of PM dose of risperidone to 0.5, and morning dose remains - hadol prn- noted pharmacy concern as to starting two medications at same time but safety is priority, used once overnight - sitter as needed but plan to remove sitter 24 hrs before discharge (2) Dementia Current Visit: Yes Status: Chronic Assessment and Plan: chronic memory loss with new onset behaviors - encourage sitting by window during day to promote day-night cycle (3) Hypertension Current Visit: Yes Status: Chronic Assessment and Plan: continue Metoprolol and norvasc with prn hydralazine (4) Insomnia Current Visit: Yes Status: Acute Assessment and Plan: likely related to psychosis and dementia; approximately 4 hours total of sleep over last 2 nights - will monitor for change with increase in risperdal DVT Prophylaxis: On subcutaneous heparin - Time Spent with Patient Total time spent is greater than 50% in coordination of care (as documented) at patient's floor/unit and/or counseling patient: Greater than 35 minutes Plan of Care Discussed with: nurse Internal Medicine: Result - Labs CBC & Chem 7: 03/14/18 04:22 03/14/18 04:22 Labs: Short CBC 03/14/18 Range/Units 04:22 WBC 5.1 (4.3-11.1) K/mcL Hgb 10.7 L D (11.5-15.4) g/dL Hct 31.6 L (35.3-44.9) % Plt Count 229 (140-400) K/mcL Neutrophils # 3.4 (1.6-8.9) K/mcL BMP 03/14/18 04:22 Sodium 139 Potassium 4.1 Chloride 107 Carbon Dioxide 27 BUN 25 H Creatinine 0.73 Glucose 111 H Calcium 9.0 - ABG Interpretation ABG results: PT/INR, D-dimer PT 11.5 Seconds (9.4-12.1) 03/10/18 01:53 Consult Discharge Plan - Plan Additional Instructions: - recommend draw C/S of urine. - Increase risperidone to 0.5 mg at 1700 Referrals: Sunil Cobb MD [Primary Care Provider] - <Nader Bardales - Last Filed: 03/14/18 17:38> Hospitalist Progress Note - Encounter Date of Encounter: 03/14/18 - Exam Vitals: Temp Pulse Resp BP Pulse Ox 98.9 F 80 16 140/80 99 03/14/18 11:00 03/14/18 11:00 03/14/18 11:00 03/14/18 11:00 03/14/18 11:00 - Assessment and Plan (1) Chest pain Current Visit: Yes Status: Ruled-out (2) Dementia Current Visit: Yes Status: Chronic (3) Dyspnea Current Visit: Yes Status: Resolved (4) Hypertension Current Visit: Yes Status: Chronic (5) Hypokalemia Current Visit: Yes Status: Resolved - Time Spent with Patient Total time spent is greater than 50% in coordination of care (as documented) at patient's floor/unit and/or counseling patient: Internal Medicine: Result - Labs CBC & Chem 7: 03/14/18 04:22 03/14/18 04:22 Labs: Short CBC 03/14/18 Range/Units 04:22 WBC 5.1 (4.3-11.1) K/mcL Hgb 10.7 L D (11.5-15.4) g/dL Hct 31.6 L (35.3-44.9) % Plt Count 229 (140-400) K/mcL Neutrophils # 3.4 (1.6-8.9) K/mcL BMP 03/14/18 04:22 Sodium 139 Potassium 4.1 Chloride 107 Carbon Dioxide 27 BUN 25 H Creatinine 0.73 Glucose 111 H Calcium 9.0 - ABG Interpretation ABG results: PT/INR, D-dimer PT 11.5 Seconds (9.4-12.1) 03/10/18 01:53 - Attending Attestation I examined this patient and my medical decision-making was reviewed with the Resident Physician Dr. Knott. I agree with the documented findings, disposition and treatment plan as described except to the extent set forth below. Ms. Eric is a 82 y/o F with dementia admitted here for acute delirium / psychosis mostly due to worsening dementia. She is alert, awake and Oriented to selg and person only. Still looks confused. Gen : A, A, O to self Heart: S1S2 + RRR No murmurs Chest : diminished BS Psch: confused / altered a/p 1. Acute Delirium due to advanced dementia 2. Acute psychosis / behavioral problem with dementia Psych consulted..Recommend to inc Risperidol Cont on Haldol PRN Will talk to psych about disposition <Leonela Knott - Last Filed: 03/14/18 13:40> (2) Dementia Qualifiers: Dementia type: Alzheimer's disease Alzheimer's disease onset: late-onset Dementia behavioral disturbance: with behavioral disturbance Qualified Code(s) : G30.1 - Alzheimer's disease with late onset; F02.81 - Dementia in other diseases classified elsewhere with behavioral disturbance (3) Hypertension Qualifiers: Hypertension type: essential hypertension Qualified Code(s): I10 - Essential (primary) hypertension <Nader Bardales - Last Filed: 03/14/18 17:38> (1) Chest pain Qualifiers: Chest pain type: unspecified Qualified Code(s): R07.9 - Chest pain, unspecified (2) Dementia Qualifiers: Dementia type: Alzheimer's disease Alzheimer's disease onset: late-onset Dementia behavioral disturbance: with behavioral disturbance Qualified Code(s) : G30.1 - Alzheimer's disease with late onset; F02.81 - Dementia in other diseases classified elsewhere with behavioral disturbance (3) Dyspnea Qualifiers: Dyspnea type: shortness of breath Qualified Code(s): R06.02 - Shortness of breath; R06.00 - Dyspnea, unspecified; R06.01 - Orthopnea (4) Hypertension Qualifiers: Hypertension type: essential hypertension Qualified Code(s): I10 - Essential (primary) hypertension
[2018-03-14] MEDS ORDERED: risperiDONE 0.25 MG TABLET PO SCH (09:15)
[2018-03-14] MEDS: Cholecalciferol (D-3) 1,000 UNIT TABLET PO SCH (09:15)
[2018-03-14] MEDS: Multivit/Ca/Min/Fe/FA 1 TAB TABLET PO SCH (09:15)
[2018-03-14] MEDS: Fluticasone Propionate Nasal 50 MCG/SPRAY BOTTLE NS SCH (09:15)
[2018-03-14] MEDS: amLODIPine 5 MG TABLET PO SCH (09:17)
--- NOTE | 2018-03-14 11:45 | Consult Note ---
Date of Encounter: 03/14/18 Time of Encounter: 11:30 Assessment & Recommendation (1) Delirium Current visit: Yes Status: Acute (2) Dementia Current visit: Yes Status: Chronic Qualifiers: Dementia type: Alzheimer's disease Alzheimer's disease onset: late-onset Dementia behavioral disturbance: with behavioral disturbance Qualified Code(s) : G30.1 - Alzheimer's disease with late onset; F02.81 - Dementia in other diseases classified elsewhere with behavioral disturbance History of Present Illness Requesting Physician: Jodi Brennan MD History of present illness: Pt is a 82 yo, , female, who presents for exacerbation of acute delirium on chronic dementia. Pt was alert and oriented x3 prior to interview. Pt noted that she feels she is "doing well.". Pt does not recall her acute exacerbation of Psychosis. Pt denied any side effects to current medications. Pt noted she felt safe and comfortable on the unit. Pt was in agreement with treatment plan. Pt noted that she is doing pretty good today. Pt noted she slept 8 hours last night. Pt noted her appetite is okay. Pt rated her depression a 0, on a scale of zero to ten with ten being the worst and zero being none. Pt rate her anxiety a 0, on the same scale. Pt denied any auditory or visual hallucinations. Pt denied any thoughts to harm herself or anyone else. Tobacco: Denies Alcohol: Denies Street: Denies Caffeine: Denies 1.Interval hx 2.Continue current medications 3.Review current labs 4.Pt had an opportunity to ask questions and discuss current treatment plan. 5.Supportive therapy was provided 6.Pt encouraged to consider group or individual therapy 7.Pt was in agreement with treatment plan. 8.Pt was educated on the risks benefits and side effects of current medications. 9. Change risperidone to 0.25 at 0900 ant 0.5 at 1700. 10. Will continue to follow loosely. 11. recommend draw C/S of urine. CC: Jodi Brennan MD Past Med Surg Social Fam HX - Past Medical History Medical history: dementia, osteoporosis, other - Past Psychiatric History Psychiatric history: Reports: depression Family psychiatric history: Yes Family History of Suicide: Unknown - Past Surgical History Surgical History: hip replacement - Social History Smoking Status: Former smoker Smokeless Tobacco Status: No Alcohol use: none Drug use: none - Family History Father Living Status: Hx Family Cardiac Disorders: Yes Medications & Allergies Multivitamin [Flintstones] 1 tab PO DAILY 03/20/15 [History] Calcium Carb, Citrate/Vit D3 [Calcium + D3 ER Tablet] 1 tab PO DAILY 03/10/18 [ History] 3 Allergy/AdvReac Type Severity Reaction Status Date / Time No Known Allergies Allergy Verified 03/20/15 08:48 Review of Systems Constitutional: Denies: fever, chills, weakness, weight change Eyes: Denies: eye pain, vision change Ears, Nose, Throat: Denies: ear pain, throat pain, dental pain, hearing loss, congestion Cardiovascular: Denies: chest pain, palpitations, dyspnea on exertion Respiratory: Denies: cough, dyspnea, wheezes Gastrointestinal: Denies: abdominal pain, nausea, vomiting, diarrhea, constipation Genitourinary female: Denies: urgency, dysuria, frequency, abnormal menses, dyspareunia Musculoskeletal: Denies: joint swelling, joint pain Integumentary: Denies: rash, lesions, pruritus Neurological: Denies: headache, weakness, numbness, memory loss Psychiatric: Reports: auditory hallucinations, difficulty concentrating, irritability Endocrine: Denies: fatigue, heat or cold intolerance Hematologic/Lymphatic: Denies: easy bruising, lymphadenopathy Allergic/Immunologic: Denies: urticaria, itchy eyes Psychiatry Exam - Constitutional Vitals: Temp Pulse Resp BP Pulse Ox 98.9 F 80 16 140/80 99 03/14/18 11:00 03/14/18 11:00 03/14/18 11:00 03/14/18 11:00 03/14/18 11:00 General appearance: age & developmentally appropriate, well-groomed, well- nourished - Musculoskeletal Gait: normal Station: relaxed Strength & Tone: normal for patient - Psychiatric Patient Orientation: Yes Person, Yes Time, Yes Place Level of alertness: Alert Behavior: calm, cooperative Psychomotor activity: Normal Eye Contact: Maintains Eye Contact Mood Description: Euthymic/stable Affect description: congruent with mood, full range Speech Volume: Normal Speech pattern: normal rate, normal rhythm, normal tone, fluent, spontaneous Language & Vocabulary: limited Thought Process: Linear, Goal Oriented, Circumstantial, Disorganized (at times) Thought Content: No Suicidal ideation, No Homicidal ideation, No Overt delusions , Yes Paranoid delusion (when sundowning), Yes Grandiose delusion (when sundowning) Perceptual Disturbances: No Auditory hallucinations, No Visual hallucinations Attention Span Ability: Capable of Focused Attention, Unable to Focus (at times) Memory Description: Immediate Impaired, Recent Impaired, Remote Impaired Patient Reliability: Not Reliable Historian Fund of knowledge: Yes average, Yes aware of current events Intelligence Estimate: Average Judgment: Poor Insight: Minimal Results - Labs Labs: Laboratory Last Values WBC 5.1 K/mcL (4.3-11.1) 03/14/18 04:22 RBC 3.54 M/mcL (3.82-4.97) L 03/14/18 04:22 Hgb 10.7 g/dL (11.5-15.4) L D 03/14/18 04:22 Hct 31.6 % (35.3-44.9) L 03/14/18 04:22 MCV 89.3 fL (83.0-100.0) 03/14/18 04:22 MCH 30.2 pg (28.0-33.3) 03/14/18 04:22 MCHC 33.9 g/dL (31.6-35.5) 03/14/18 04:22 RDW 13.6 % (11.5-14.5) 03/14/18 04:22 Plt Count 229 K/mcL (140-400) 03/14/18 04:22 MPV 9.3 fL (9.4-12.4) L 03/14/18 04:22 Immature Gran % 0.0 % (0-4) 03/14/18 04:22 Seg Neutrophils % 66.6 % 03/14/18 04:22 Lymphocytes % 22.0 % 03/14/18 04:22 Monocytes % 10.0 % 03/14/18 04:22 Eosinophils % 1.0 % 03/14/18 04:22 Basophils % 0.4 % 03/14/18 04:22 Neutrophils # 3.4 K/mcL (1.6-8.9) 03/14/18 04:22 Lymphocytes # 1.1 K/mcL (0.6-4.6) 03/14/18 04:22 Monocytes # 0.5 K/mcL (0.0-1.3) 03/14/18 04:22 Eosinophils # 0.1 K/mcL (0.0-0.6) 03/14/18 04:22 Basophils # 0.0 K/mcL (0.0-0.2) 03/14/18 04:22 PT 11.5 Seconds (9.4-12.1) 03/10/18 01:53 INR 1.0 03/10/18 01:53 APTT 30.9 Seconds (26.0-36.0) 03/10/18 01:53 Sodium 139 mEq/L (136-145) 03/14/18 04:22 Potassium 4.1 mEq/L (3.5-5.1) 03/14/18 04:22 Chloride 107 mEq/L (98-107) 03/14/18 04:22 Carbon Dioxide 27 mEq/L (23-29) 03/14/18 04:22 BUN 25 mg/dL (8-23) H 03/14/18 04:22 Creatinine 0.73 mg/dL (0.60-1.20) 03/14/18 04:22 Est GFR ( Amer) > 60 (> 60) 03/14/18 04:22 Est GFR (Non-Af Amer) > 60 (> 60) 03/14/18 04:22 BUN/Creatinine Ratio 34 (6-26) H 03/14/18 04:22 Glucose 111 mg/dL (70-105) H 03/14/18 04:22 Calculated Osmolality 293 (280-300) 03/14/18 04:22 Lactic Acid 0.8 mmol/L (0.5-2.2) 03/10/18 01:53 Calcium 9.0 mg/dL (8.6-10.3) 03/14/18 04:22 Total Bilirubin 0.8 mg/dL (0.3-1.0) 03/11/18 04:46 AST 18 Units/L (13-39) 03/11/18 04:46 ALT 10 Units/L (7-52) 03/11/18 04:46 Alkaline Phosphatase 67 Units/L (34-104) 03/11/18 04:46 Troponin I < 0.03 ng/mL (< 0.04) 03/10/18 08:09 B-Natriuretic Peptide 140 pg/mL (Less than 100) H 03/10/18 01:53 Serum Total Protein 7.2 g/dL (6.4-8.9) 03/11/18 04:46 Albumin 4.0 g/dL (3.5-5.7) 03/11/18 04:46 Globulin 3.2 g/dL (2.4-3.5) 03/11/18 04:46 Albumin/Globulin Ratio 1.3 (1.1-2.2) 03/11/18 04:46 Urine Color Yellow (Yellow) 03/10/18 02:38 Urine Clarity Clear (Clear) 03/10/18 02:38 Urine pH 6.0 pH Units (5.0-8.0) 03/10/18 02:38 Ur Specific [place] 1.016 (1.010-1.025) 03/10/18 02:38 Urine Protein Negative mg/dL (Neg-Trace) 03/10/18 02:38 Urine Glucose (UA) Normal mg/dL (Normal) 03/10/18 02:38 Urine Ketones Trace mg/dL (Negative) H 03/10/18 02:38 Urine Blood Trace (Negative) H 03/10/18 02:38 Urine Nitrite Negative (Negative) 03/10/18 02:38 Urine Bilirubin Negative (Negative) 03/10/18 02:38 Urine Urobilinogen Normal mg/dL (Normal) 03/10/18 02:38 Ur Leukocyte Esterase Small (Negative) H 03/10/18 02:38 Urine Microscopic RBC 5-15 per hpf (0-3) H 03/10/18 02:38 Urine Microscopic WBC 5-15 per hpf (0-3) H 03/10/18 02:38 Ur Squamous Epith Cells Moderate per lpf (None-Few) H 03/10/18 02:38 Urine Bacteria None Seen per hpf (None-Few) 03/10/18 02:38 Hyaline Casts None Seen per lpf (None-Few) 03/10/18 02:38 Ur Culture Indicated? YES (NO) A 03/10/18 02:38 Consult Discharge Plan - Plan Additional Instructions: - recommend draw C/S of urine. - Increase risperidone to 0.5 mg at 1700 Referrals: Sunil Cobb MD [Primary Care Provider] -
[2018-03-14] MEDS: risperiDONE 0.25 MG TABLET PO SCH (16:53)
[2018-03-15] MEDS: *HR* Heparin 5,000 UNIT/ML VIAL SQ SCH ×2 (06:33→17:53)
[2018-03-15] MEDS: amLODIPine 5 MG TABLET PO SCH (09:26)
[2018-03-15] MEDS: Fluticasone Propionate Nasal 50 MCG/SPRAY BOTTLE NS SCH (09:26)
[2018-03-15] MEDS: Cholecalciferol (D-3) 1,000 UNIT TABLET PO SCH (09:26)
[2018-03-15] MEDS: Multivit/Ca/Min/Fe/FA 1 TAB TABLET PO SCH (09:26)
[2018-03-15] MEDS: risperiDONE 0.25 MG TABLET PO SCH ×2 (09:26→17:53)
--- NOTE | 2018-03-15 13:07 | Internal Med Progress Note ---
Hospitalist Progress Note - Encounter Date of Encounter: 03/15/18 Time of Encounter: 09:00 - Subjective Interval History: Ms. Eric is a 82 y/o F with dementia admitted here for acute delirium / psychosis mostly due to worsening dementia. She is more alert, awake and Oriented to self and person today. No events over night. Resting comfortably. - Exam Vitals: Temp Pulse Resp BP Pulse Ox 98.2 F 72 18 134/74 92 03/15/18 06:00 03/15/18 06:00 03/15/18 06:00 03/15/18 06:00 03/15/18 06:00 Exam: General : pleasant, in no acute distress, alert to self Cardiac: RRR no murmurs or gallop Respiratory: DBS b/l, no crackles, no wheeze or rales Abdomen: Soft, not distended, no tenderness, no masses or organomegaly Extremities: pulses intact, no pedal edema - Assessment and Plan (1) Acute psychosis Current Visit: Yes Status: Acute Assessment and Plan: Due to advanced dementia ruled out an infectious etiology improving no more hallucinations/delusion continue Haldol as needed psych was consulted increased Risperidone to 0.5 mg as per psychiatric recommendation patient would get benefit with ECF placement top case assembler/social work instructor working on it (2) Acute delirium Current Visit: Yes Status: Acute Assessment and Plan: see above (3) Dementia Current Visit: Yes Status: Chronic Assessment and Plan: Continue symptomatic and supportive care (4) Dyspnea Current Visit: Yes Status: Resolved Assessment and Plan: Uncertain etiology resolved (5) Hypertension Current Visit: Yes Status: Chronic Assessment and Plan: Well controlled with the current regimen (6) Hypokalemia Current Visit: Yes Status: Resolved Assessment and Plan: Resolved - Time Spent with Patient Total time spent is greater than 50% in coordination of care (as documented) at patient's floor/unit and/or counseling patient: Internal Medicine: Result - Labs CBC & Chem 7: 03/14/18 04:22 03/14/18 04:22 - ABG Interpretation ABG results: PT/INR, D-dimer PT 11.5 Seconds (9.4-12.1) 03/10/18 01:53 Consult Discharge Plan - Plan Additional Instructions: - recommend draw C/S of urine. - Increase risperidone to 0.5 mg at 1700 Referrals: Sunil Cobb MD [Primary Care Provider] - (3) Dementia Qualifiers: Dementia type: Alzheimer's disease Alzheimer's disease onset: late-onset Dementia behavioral disturbance: with behavioral disturbance Qualified Code(s) : G30.1 - Alzheimer's disease with late onset; F02.81 - Dementia in other diseases classified elsewhere with behavioral disturbance (4) Dyspnea Qualifiers: Dyspnea type: shortness of breath Qualified Code(s): R06.02 - Shortness of breath; R06.00 - Dyspnea, unspecified; R06.01 - Orthopnea (5) Hypertension Qualifiers: Hypertension type: essential hypertension Qualified Code(s): I10 - Essential (primary) hypertension
[2018-03-15] MEDS: Haloperidol Lactate 5 MG/ML VIAL IVP PRN (19:50)
[2018-03-16] MEDS: *HR* Heparin 5,000 UNIT/ML VIAL SQ SCH ×2 (06:17→17:51)
[2018-03-16] MEDS: Multivit/Ca/Min/Fe/FA 1 TAB TABLET PO SCH (09:58)
[2018-03-16] MEDS: Cholecalciferol (D-3) 1,000 UNIT TABLET PO SCH (09:58)
[2018-03-16] MEDS: risperiDONE 0.25 MG TABLET PO SCH ×2 (09:58→16:55)
[2018-03-16] MEDS: amLODIPine 5 MG TABLET PO SCH (09:59)
[2018-03-16] MEDS: Fluticasone Propionate Nasal 50 MCG/SPRAY BOTTLE NS SCH (09:59)
--- NOTE | 2018-03-16 13:24 | Internal Med Progress Note ---
Hospitalist Progress Note - Encounter Date of Encounter: 03/16/18 Time of Encounter: 09:00 - Subjective Interval History: Ms. Eric is a 82 y/o F with dementia admitted here for acute delirium / psychosis mostly due to worsening dementia. She is more alert, awake and Oriented to self and person today. Got little agitated last night, however now she is resting comfortably. - Exam Vitals: Temp Pulse Resp BP Pulse Ox 98.2 F 73 14 134/71 97 03/16/18 09:29 03/16/18 09:29 03/16/18 09:29 03/16/18 09:29 03/16/18 09:29 Exam: General : pleasant, in no acute distress, alert to self Cardiac: RRR no murmurs or gallop Respiratory: DBS b/l, no crackles, no wheeze or rales Abdomen: Soft, not distended, no tenderness, no masses or organomegaly Extremities: pulses intact, no pedal edema - Assessment and Plan (1) Acute psychosis Current Visit: Yes Status: Acute Assessment and Plan: Due to advanced dementia ruled out an infectious etiology improving no more hallucinations/delusion continue Haldol as needed psych was consulted increased Risperidone to 0.5 mg as per psychiatric recommendation patient would get benefit with ECF placement business case analyst/case management social worker working on it (2) Acute delirium Current Visit: Yes Status: Acute Assessment and Plan: see above (3) Dementia Current Visit: Yes Status: Chronic Assessment and Plan: Continue symptomatic and supportive care (4) Dyspnea Current Visit: Yes Status: Resolved Assessment and Plan: Uncertain etiology resolved (5) Hypertension Current Visit: Yes Status: Chronic Assessment and Plan: Well controlled with the current regimen (6) Hypokalemia Current Visit: Yes Status: Resolved Assessment and Plan: Resolved - Time Spent with Patient Total time spent is greater than 50% in coordination of care (as documented) at patient's floor/unit and/or counseling patient: Internal Medicine: Result - Labs CBC & Chem 7: 03/14/18 04:22 03/14/18 04:22 - ABG Interpretation ABG results: PT/INR, D-dimer PT 11.5 Seconds (9.4-12.1) 03/10/18 01:53 Consult Discharge Plan - Plan Additional Instructions: - recommend draw C/S of urine. - Increase risperidone to 0.5 mg at 1700 Referrals: Sunil Cobb MD [Primary Care Provider] - (3) Dementia Qualifiers: Dementia type: Alzheimer's disease Alzheimer's disease onset: late-onset Dementia behavioral disturbance: with behavioral disturbance Qualified Code(s) : G30.1 - Alzheimer's disease with late onset; F02.81 - Dementia in other diseases classified elsewhere with behavioral disturbance (4) Dyspnea Qualifiers: Dyspnea type: shortness of breath Qualified Code(s): R06.02 - Shortness of breath; R06.00 - Dyspnea, unspecified; R06.01 - Orthopnea (5) Hypertension Qualifiers: Hypertension type: essential hypertension Qualified Code(s): I10 - Essential (primary) hypertension
[2018-03-17] MEDS: *HR* Heparin 5,000 UNIT/ML VIAL SQ SCH ×2 (05:46→16:14)
[2018-03-17] MEDS: amLODIPine 5 MG TABLET PO SCH (10:02)
[2018-03-17] MEDS: Cholecalciferol (D-3) 1,000 UNIT TABLET PO SCH (10:02)
[2018-03-17] MEDS: Fluticasone Propionate Nasal 50 MCG/SPRAY BOTTLE NS SCH (10:03)
[2018-03-17] MEDS: risperiDONE 0.25 MG TABLET PO SCH ×2 (10:03→16:13)
[2018-03-17] MEDS: Multivit/Ca/Min/Fe/FA 1 TAB TABLET PO SCH (10:03)
[2018-03-17 15:07] VITALS: BP 148/77
--- NOTE | 2018-03-17 15:27 | Discharge Summary ---
- NOTES TO OUTPATIENT PROVIDER Notes to Outpatient Provider: f/u with PCP in one week Date of Encounter: 03/17/18 Time of Encounter: 15:23 - Discharge Diagnosis (1) Acute psychosis Priority: Primary Status: Acute (2) Acute delirium Priority: Primary Status: Acute (3) Dementia Priority: Secondary Status: Chronic Qualifiers: Dementia type: Alzheimer's disease Alzheimer's disease onset: late-onset Dementia behavioral disturbance: with behavioral disturbance Qualified Code(s) : G30.1 - Alzheimer's disease with late onset; F02.81 - Dementia in other diseases classified elsewhere with behavioral disturbance (4) Dyspnea Priority: Secondary Status: Resolved Qualifiers: Dyspnea type: shortness of breath Qualified Code(s): R06.02 - Shortness of breath; R06.00 - Dyspnea, unspecified; R06.01 - Orthopnea (5) Hypertension Priority: Secondary Status: Chronic Qualifiers: Hypertension type: essential hypertension Qualified Code(s): I10 - Essential (primary) hypertension (6) Hypokalemia Priority: Secondary Status: Resolved Hospital course: Ms. Eric is a 82 y/o F with with reported past medical history of dementia and osteoporosis presented to ER with confusion and [facility]. Pt was admitted here for acute delirium / psychosis. Initially she was needed sitter. She was started on Haldol and Risperidone. Her symptoms started improving slowly. She is more alert, awake and O to self now. No more agitation / psychotic episodes since last 48 hrs. Pt was evaluated by psychiatry here who recommend to inc Risperdione dose and cont Haldol PRN. PT / OT recommend ECF placement, so will d /c her to ECF in stable condition today. - Time Spent with Patient Total time spent providing and/or coordinating discharge services: - Discharge Medications Prescriptions: Haloperidol [Haldol] 0.5 mg PO BID PRN 7 Days #15 tablet PRN Reason: Agitation Home Medications: Multivitamin [Flintstones] 1 tab PO DAILY 03/20/15 [History] Calcium Carb, Citrate/Vit D3 [Calcium + D3 ER Tablet] 1 tab PO DAILY 03/10/18 [ History] Haloperidol [Haldol] 0.5 mg PO BID PRN 7 Days #15 tablet 03/17/18 [Rx] Metoprolol [Lopressor] 12.5 mg PO BID tablet 03/17/18 [Rx] amLODIPine [Norvasc] 10 mg PO DAILY tablet 03/17/18 [Rx] risperiDONE [RisperDAL] 0.25 mg PO 0900 tablet 03/17/18 [Rx] risperiDONE [RisperDAL] 0.5 mg PO 1700 tablet 03/17/18 [Rx] Allergies/Adverse Reactions: 3 Allergy/AdvReac Type Severity Reaction Status Date / Time No Known Allergies Allergy Verified 03/20/15 08:48 Date of admission: 03/12/18 10:44 Primary care physician: Sunil Cobb MD Consults: 03/13/18 15:36 Consult to Psychiatry [CONS] Routine Consulting Provider: Psychiatry Andrews Reason consult: Psychosis Other reason and/or additional details: dementia with new onset behaviors - Constitutional Vitals: Temp Pulse Resp BP Pulse Ox 98.5 F 79 16 148/77 94 03/17/18 15:06 03/17/18 15:06 03/17/18 15:06 03/17/18 15:06 03/17/18 15:06 General appearance: Present: cooperative, A&O X 1, answers questions appropriately Exam: General : pleasant, in no acute distress, alert to self Cardiac: RRR no murmurs or gallop Respiratory: DBS b/l, no crackles, no wheeze or rales Abdomen: Soft, not distended, no tenderness, no masses or organomegaly Extremities: pulses intact, no pedal edema - Patient Status Disposition: Transfer SNF Condition: Good Overall status at discharge: patient is back to baseline - Discharge Instructions Follow Up With: Sunil Cobb MD [Primary Care Provider] - Additional Instructions: - recommend draw C/S of urine. - Increase risperidone to 0.5 mg at 1700 - Diet and Activity Activity: increase activity as tolerated Diet: low salt diet
--- NOTE | 2018-03-17 15:30 | Physician Discharge Referral ---
ExtendedCare Referral Info Transfer To: [facility] Provider in Charge after Transfer: PCP Institutional Level of Care: Skilled - Diagnosis (1) Acute psychosis Status: Acute (2) Acute delirium Status: Acute (3) Dementia Status: Chronic (4) Dyspnea Status: Resolved (5) Hypertension Status: Chronic (6) Hypokalemia Status: Resolved - Transfer Medications Prescriptions: Haloperidol [Haldol] 0.5 mg PO BID PRN 7 Days #15 tablet PRN Reason: Agitation Home Medications: Multivitamin [Flintstones] 1 tab PO DAILY 03/20/15 [History] Calcium Carb, Citrate/Vit D3 [Calcium + D3 ER Tablet] 1 tab PO DAILY 03/10/18 [ History] Haloperidol [Haldol] 0.5 mg PO BID PRN 7 Days #15 tablet 03/17/18 [Rx] Metoprolol [Lopressor] 12.5 mg PO BID tablet 03/17/18 [Rx] amLODIPine [Norvasc] 10 mg PO DAILY tablet 03/17/18 [Rx] risperiDONE [RisperDAL] 0.25 mg PO 0900 tablet 03/17/18 [Rx] risperiDONE [RisperDAL] 0.5 mg PO 1700 tablet 03/17/18 [Rx] Allergies/Adverse Reactions: 3 Allergy/AdvReac Type Severity Reaction Status Date / Time No Known Allergies Allergy Verified 03/20/15 08:48 - Respiratory Orders Smoking Cessation: Smoking cessation has been advised. For more information, call the [place] Tobacco Quit Line at 9-298-CBHBNOW. CERTIFICATION: I certify that the transfer of the above named patient to an Extended Care Facility is necessary for the continuing treatment of the diagnosis listed. The above information is true and accurate reflection of patient's current condition. Confidential - Redisclosure prohibited without a patient's written consent.
== END 2018-03-17 17:37 | DRG 885 ==
LOC: 2ANU 01:20 → EMEROOARM 01:20 → SUATTDRO 05:19 → 2ANU 05:59
PROVIDERS: ADMIT Internal Medicine; ATTEND Internal Medicine

== ENCOUNTER 2020-08-09 09:56 | Observation (INO) ==
[2020-08-09] MEDS ORDERED: 0.9 % Sodium Chloride 1,000 ML IVC ONE (10:33)
[2020-08-09 10:59] LABS: Basophils % 0.3 %; Eosinophils # 0.1 K/mcL (0.0-0.6); Eosinophils % 0.8 %; Hematocrit 39.2 % (35.3-44.9); Hemoglobin 12.7 g/dL (11.5-15.4); Immature Granulocytes % 0.2 % (0-4); Lymphocytes # 1.4 K/mcL (0.6-4.6); Mean Corpuscular HGB Conc 32.4 g/dL (31.6-35.5); Mean Corpuscular Hemoglobin 30.2 pg (28.0-33.3); Mean Corpuscular Volume 93.3 fL (83.0-100.0); Mean Platelet Volume 9.4 fL (9.4-12.4); Monocytes # 0.5 K/mcL (0.0-1.3); Monocytes % 7.7 %; Neutrophils # 4.2 K/mcL (1.6-8.9); Platelet Count 308 K/mcL (140-400); Red Cell Distribution Width 13.5 % (11.5-14.5); White Blood Count 6.2 K/mcL (4.3-11.1)
[2020-08-09 11:08] LABS: Prothrombin Time 11.4 Seconds (9.4-12.1)
[2020-08-09 11:22] LABS: BUN/Creatinine Ratio 19 (6-26); Blood Urea Nitrogen 14 mg/dL (8-23); Calcium 9.7 mg/dL (8.6-10.3); Carbon Dioxide 28 mEq/L (23-29); Chloride 104 mEq/L (98-107); Creatine Kinase 64 Units/L (30-223); Glucose 103 mg/dL (70-105); Magnesium 2.2 mg/dL (1.6-2.6); Osmolality,Calculated 289 (280-300); Potassium 4.2 mEq/L (3.5-5.1); Sodium 139 mEq/L (136-145); eGFR For African Americans > 60 (> 60); eGFR For Non-African Americans > 60 (> 60)
[2020-08-09 11:43] LABS: Adenovirus Not Detected (Not Detect); Bordetella Pertussis Not Detected (Not Detect); Chlamydophila pneumoniae Not Detected (Not Detect); Coronavirus 229E Not Detected (Not Detect); Coronavirus HKU1 Not Detected (Not Detect); Coronavirus NL63 Not Detected (Not Detect); Coronavirus OC43 Not Detected (Not Detect); Human Metapneumovirus Not Detected (Not Detect); Human Rhinovirus/Enterovirus Not Detected (Not Detect); Influenza A Subtype 2009 H1 Not Detected (Not Detect); Influenza B Not Detected (Not Detect); Mycoplasma pneumoniae Not Detected (Not Detect); Parainfluenza Virus 1 Not Detected (Not Detect); Parainfluenza Virus 2 Not Detected (Not Detect); Parainfluenza Virus 3 Not Detected (Not Detect); Parainfluenza Virus 4 Not Detected (Not Detect); Respiratory Syncytial Virus Not Detected (Not Detect); SARS-CoV-2 Not Detected (Not Detect)
[2020-08-09 12:09] LABS: Troponin I < 0.03 ng/mL (< 0.04)
[2020-08-09 12:41] LABS: Bilirubin,Urine Negative (Negative); Blood,Urine Negative (Negative); Clarity,Urine Clear (Clear); Color,Urine Yellow (Yellow); Glucose,Urine (UA) Normal (Normal); Ketones,Urine Negative (Negative); Leukocyte Esterase,Urine Negative (Negative); Nitrite,Urine Negative (Negative); PH,Urine 7.5 pH Units (5.0-8.0); Protein,Urine Negative (Neg-Trace); Urobilinogen,Urine Normal (Normal)
[2020-08-09] MEDS ORDERED: Perflutren Lipid Microsphere 1.3 ML in 0.9 % Sodium Chloride 8.7 ML IVP PRN (14:40)
[2020-08-09] MEDS ORDERED: Naloxone 0.4 MG/ML INJ IVP PRN (14:42)
[2020-08-09] MEDS ORDERED: Acetaminophen 325 MG TABLET PO PRN (14:42)
[2020-08-09] MEDS ORDERED: traZODone 50 MG TABLET PO SCH (21:00)
[2020-08-10 04:45] LABS: Hematocrit 33.9 % (35.3-44.9); Mean Corpuscular HGB Conc 31.9 g/dL (31.6-35.5); Mean Corpuscular Hemoglobin 30.2 pg (28.0-33.3); Mean Corpuscular Volume 94.7 fL (83.0-100.0); Mean Platelet Volume 9.5 fL (9.4-12.4); Platelet Count 250 K/mcL (140-400); Red Blood Count 3.58 M/mcL (3.82-4.97); Red Cell Distribution Width 13.5 % (11.5-14.5); White Blood Count 4.8 K/mcL (4.3-11.1)
[2020-08-10 04:46] LABS: Hemoglobin 10.8 g/dL (11.5-15.4)
[2020-08-10 05:05] LABS: BUN/Creatinine Ratio 26 (6-26); Blood Urea Nitrogen 17 mg/dL (8-23); Calcium 8.6 mg/dL (8.6-10.3); Carbon Dioxide 27 mEq/L (23-29); Chloride 107 mEq/L (98-107); Glucose 83 mg/dL (70-105); Osmolality,Calculated 293 (280-300); Potassium 3.6 mEq/L (3.5-5.1); Sodium 141 mEq/L (136-145); eGFR For African Americans > 60 (> 60); eGFR For Non-African Americans > 60 (> 60)
[2020-08-10] MEDS ORDERED: Cholecalciferol (D-3) 1,000 UNIT (25MCG) TABLET PO SCH (09:00)
[2020-08-10] MEDS ORDERED: amLODIPine 5 MG TABLET PO SCH (09:00)
[2020-08-10 10:02] LABS: Hematocrit 38.7 % (35.3-44.9); Hemoglobin 12.1 g/dL (11.5-15.4)
[2020-08-10 12:22] VITALS: BP 147/70
== END 2020-08-10 14:55 ==
LOC: 3NENU 09:56 → EMEROOARM 09:56 → SUATTDRO 14:10 → 3NENU 15:09
PROVIDERS: ADMIT Internal Medicine; ATTEND Internal Medicine

== ENCOUNTER 2022-02-10 15:26 | Inpatient (IN) ==
[2022-02-10 16:48] LABS: Basophils % 0.3 %; Hematocrit 36.4 % (35.3-44.9); Immature Granulocytes % 0.3 % (0-4); Lymphocytes % 14.3 %; Mean Corpuscular Hemoglobin 31.7 pg (28.0-33.3); Mean Corpuscular Volume 96.3 fL (83.0-100.0); Mean Platelet Volume 9.9 fL (9.4-12.4); Monocytes # 0.7 K/mcL (0.0-1.3); Monocytes % 9.8 %; Neutrophils # 5.2 K/mcL (1.6-8.9); Platelet Count 243 K/mcL (140-400); Red Blood Count 3.78 M/mcL (3.82-4.97); Red Cell Distribution Width 13.2 % (11.5-14.5); Segmented Neutrophils % 75.3 %; White Blood Count 6.9 K/mcL (4.3-11.1)
[2022-02-10 16:58] LABS: INR 0.9; Prothrombin Time 9.6 Seconds (9.4-12.1)
[2022-02-10 17:00] LABS: Activated Partial Thrombo Time 27.9 Seconds (26.0-36.0)
[2022-02-10 17:34] LABS: Alanine Aminotransferase 22 Units/L (7-52); Albumin 3.8 g/dL (3.5-5.7); Albumin/Globulin Ratio 1.1 (1.1-2.2); Alkaline Phosphatase 58 Units/L (34-104); Aspartate Amino Transferase 52 Units/L (13-39); BUN/Creatinine Ratio 23 (6-26); Bilirubin,Indirect 0.4 mg/dL (0.0-1.0); Bilirubin,Total 0.4 mg/dL (0.3-1.0); Blood Urea Nitrogen 21 mg/dL (8-23); C-Reactive Protein < 5 mg/L (Less than 10); Carbon Dioxide 27 mEq/L (23-29); Chloride 101 mEq/L (98-107); Globulin 3.6 g/dL (2.4-3.5); Glucose 157 mg/dL (70-105); Lactate Dehydrogenase 306 Units/L (140-271); Magnesium 2.2 mg/dL (1.6-2.6); Osmolality,Calculated 290 (280-300); Phosphorous 3.4 mg/dL (2.7-4.5); Potassium 4.5 mEq/L (3.5-5.1); Sodium 137 mEq/L (136-145); Total Protein 7.4 g/dL (6.4-8.9); Troponin I 0.17 ng/mL (< 0.04); eGFR For African Americans > 60 (> 60); eGFR For Non-African Americans 58 (> 60)
[2022-02-10 18:38] LABS: Bilirubin,Urine Negative (Negative); Blood,Urine Negative (Negative); Clarity,Urine Clear (Clear); Color,Urine Yellow (Yellow); Glucose,Urine (UA) 50 mg/dL (Normal); Ketones,Urine Negative (Negative); Leukocyte Esterase,Urine Negative (Negative); Mucus,Urine Few per lpf (None-Few); Nitrite,Urine Negative (Negative); PH,Urine 6.5 pH Units (5.0-8.0); Protein,Urine Trace mg/dL (Neg-Trace); Specific Gravity,Urine 1.016 (1.010-1.025); Urobilinogen,Urine Normal (Normal); WBC,Urine 0-3 per hpf (0-3)
[2022-02-10] MEDS ORDERED: Iopamidol - 370 500 ML MLS IVP ONE ×2 (19:38→20:06)
[2022-02-10] MEDS ORDERED: Naloxone 0.4 MG/ML INJ IVP PRN (20:04)
[2022-02-10 20:21] LABS: Ferritin 32 ng/mL (10-120)
[2022-02-10] MEDS ORDERED: Albuterol 2.5 MG/3 ML NEBULIZER IH PRN (21:14)
[2022-02-10] MEDS ORDERED: Acetaminophen 325 MG TABLET PO PRN (21:18)
[2022-02-10] MEDS ORDERED: dexAMETHasone 4 MG TABLET PO SCH (21:30)
[2022-02-10] MEDS ORDERED: *HR* Heparin 5,000 UNIT/ML VIAL IVP PRN (22:04)
[2022-02-10] MEDS ORDERED: *HR* Heparin 5,000 UNIT/ML VIAL IVP ONE (22:04)
[2022-02-10] MEDS ORDERED: Perflutren Lipid Microsphere 1.3 ML in 0.9 % Sodium Chloride 8.7 ML IVP PRN (22:09)
[2022-02-10] MEDS: 0.9 % Sodium Chloride 1,000 ML IVC SCH (22:59)
[2022-02-10] MEDS: Heparin 25,000UNIT/250ML 1/2NS 25,000 UNIT/250 ML IV.SOLN IVC SCH (22:59)
[2022-02-11] MEDS ORDERED: Aspirin 325 MG TABLET PO ONE (02:42)
[2022-02-11] MEDS ORDERED: Aspirin 81 MG TAB.CHEW ONE (02:44)
[2022-02-11] MEDS ORDERED: Ipratropium/Albuterol Neb 3 ML ONE (02:45)
[2022-02-11] MEDS ORDERED: *HR* LORazepam 2 MG/ML VIAL IVP ONE ×3 (02:45→16:16)
[2022-02-11] MEDS ORDERED: Ipratropium/Albuterol Neb 3 ML IH ONE (02:46)
[2022-02-11] MEDS: Ipratropium/Albuterol Neb 3 ML IH SCH ×2 (03:00→17:42)
[2022-02-11] MEDS ORDERED: *HR* LORazepam 0.5 MG TABLET PO PRN (03:02)
[2022-02-11] MEDS ORDERED: *HR* Metoprolol 5 MG/5 ML VIAL IVP ONE (03:44)
[2022-02-11 03:53] LABS: ABG Base Excess -1 mEq/L (-2 to 3); ABG HCO3 25 mEq/L (21-27); ABG Oxygen Saturation 89 % (95-98); ABG PCO2 43 mmHg (35-45); ABG PH 7.37 pH Units (7.32-7.45); ABG PO2 58 mmHg (85-104); ABG TCO2 26 mEq/L (20-26)
[2022-02-11] MEDS ORDERED: *HR* LORazepam 2 MG/ML VIAL IVP PRN (03:55)
[2022-02-11] MEDS ORDERED: Ipratropium 1 PUFF INHALER IH SCH (04:00)
[2022-02-11 05:57] LABS: Mean Corpuscular HGB Conc 32.4 g/dL (31.6-35.5); Mean Corpuscular Hemoglobin 31.3 pg (28.0-33.3); Mean Corpuscular Volume 96.9 fL (83.0-100.0); Mean Platelet Volume 9.3 fL (9.4-12.4); Platelet Count 206 K/mcL (140-400); Red Blood Count 3.51 M/mcL (3.82-4.97); Red Cell Distribution Width 13.2 % (11.5-14.5); White Blood Count 6.9 K/mcL (4.3-11.1)
[2022-02-11] MEDS ORDERED: Remdesivir 200 MG in 0.9 % Sodium Chloride 100 ML IVPB ONE (06:00)
[2022-02-11 06:19] LABS: Heparin anti-factor XA UFH 0.41 IU/mL (0.30-0.70)
[2022-02-11 06:20] LABS: BUN/Creatinine Ratio 23 (6-26); Blood Urea Nitrogen 19 mg/dL (8-23); Calcium 8.1 mg/dL (8.6-10.3); Carbon Dioxide 28 mEq/L (23-29); Chloride 104 mEq/L (98-107); Glucose 113 mg/dL (70-105); Osmolality,Calculated 287 (280-300); Potassium 3.5 mEq/L (3.5-5.1); Prothrombin Time 10.9 Seconds (9.4-12.1); Sodium 137 mEq/L (136-145); eGFR For African Americans > 60 (> 60); eGFR For Non-African Americans > 60 (> 60)
[2022-02-11] MEDS: Aspirin 81 MG TAB.CHEW PO SCH (08:09)
[2022-02-11] MEDS: Ipratropium 1 PUFF INHALER IH SCH ×5 (08:24→22:45)
[2022-02-11] MEDS: *HR* Heparin 5,000 UNIT/ML VIAL IVP PRN ×2 (13:11→20:12)
[2022-02-11] MEDS ORDERED: Racepinephrine Neb 0.5 ML VIAL IH ONE (16:06)
[2022-02-11] MEDS ORDERED: hydrOXYzine pamoate 25 MG CAPSULE PO ONE (23:04)
[2022-02-12] MEDS: Ipratropium 1 PUFF INHALER IH SCH ×6 (03:34→22:47)
[2022-02-12] MEDS: 0.9 % Sodium Chloride 1,000 ML IVC SCH (04:59)
[2022-02-12] MEDS: Remdesivir 100 MG in 0.9 % Sodium Chloride 100 ML IVPB SCH (05:01)
[2022-02-12 05:37] LABS: Basophils % 0.1 %; Hematocrit 34.3 % (35.3-44.9); Hemoglobin 11.3 g/dL (11.5-15.4); Immature Granulocytes % 0.4 % (0-4); Lymphocytes % 11.4 %; Mean Corpuscular HGB Conc 32.9 g/dL (31.6-35.5); Mean Corpuscular Hemoglobin 31.6 pg (28.0-33.3); Mean Corpuscular Volume 95.8 fL (83.0-100.0); Mean Platelet Volume 10.3 fL (9.4-12.4); Monocytes # 0.6 K/mcL (0.0-1.3); Monocytes % 7.2 %; Neutrophils # 6.8 K/mcL (1.6-8.9); Platelet Count 171 K/mcL (140-400); Red Blood Count 3.58 M/mcL (3.82-4.97); Red Cell Distribution Width 13.2 % (11.5-14.5); Segmented Neutrophils % 80.9 %; White Blood Count 8.4 K/mcL (4.3-11.1)
[2022-02-12 06:00] LABS: Albumin 3.5 g/dL (3.5-5.7); Albumin/Globulin Ratio 1.3 (1.1-2.2); BUN/Creatinine Ratio 29 (6-26); Bilirubin,Direct 0.1 mg/dL (0.0-0.2); Bilirubin,Indirect 0.5 mg/dL (0.0-1.0); Bilirubin,Total 0.6 mg/dL (0.3-1.0); Blood Urea Nitrogen 20 mg/dL (8-23); Calcium 8.4 mg/dL (8.6-10.3); Carbon Dioxide 26 mEq/L (23-29); Chloride 106 mEq/L (98-107); Globulin 2.8 g/dL (2.4-3.5); Glucose 99 mg/dL (70-105); Osmolality,Calculated 291 (280-300); Potassium 4.1 mEq/L (3.5-5.1); Sodium 139 mEq/L (136-145); Total Protein 6.3 g/dL (6.4-8.9); eGFR For African Americans > 60 (> 60); eGFR For Non-African Americans > 60 (> 60)
[2022-02-12] MEDS: *HR* Heparin 5,000 UNIT/ML VIAL IVP PRN ×2 (06:50→14:24)
[2022-02-12] MEDS: Dexamethasone Sodium Phos/PF 10 MG/ML VIAL IVP SCH (09:00)
[2022-02-12] MEDS: Aspirin 81 MG TAB.CHEW PO SCH (09:00)
[2022-02-12] MEDS ORDERED: Racepinephrine Neb 0.5 ML VIAL IH PRN (10:32)
[2022-02-12] MEDS: Heparin 25,000UNIT/250ML 1/2NS 25,000 UNIT/250 ML IV.SOLN IVC SCH (14:38)
[2022-02-12] MEDS ORDERED: traZODone 50 MG TABLET PO SCH (21:00)
[2022-02-13 01:15] LABS: Adenovirus Not Detected (Not Detect); Coronavirus 229E Not Detected (Not Detect); Coronavirus HKU1 Not Detected (Not Detect); Coronavirus NL63 Not Detected (Not Detect); Coronavirus OC43 Not Detected (Not Detect)
[2022-02-13 01:16] LABS: Bordetella Pertussis Not Detected (Not Detect); Human Metapneumovirus Not Detected (Not Detect); Human Rhinovirus/Enterovirus Not Detected (Not Detect); Influenza A Subtype 2009 H1 Not Detected (Not Detect); Influenza B Not Detected (Not Detect); Parainfluenza Virus 1 Not Detected (Not Detect); Parainfluenza Virus 2 Not Detected (Not Detect); Parainfluenza Virus 3 Not Detected (Not Detect); Parainfluenza Virus 4 Not Detected (Not Detect); Respiratory Syncytial Virus Not Detected (Not Detect); SARS-CoV-2 DETECTED (Not Detect)
[2022-02-13 01:17] LABS: Chlamydophila pneumoniae Not Detected (Not Detect); Mycoplasma pneumoniae Not Detected (Not Detect)
[2022-02-13] MEDS: Ipratropium 1 PUFF INHALER IH SCH ×4 (03:55→16:15)
[2022-02-13 06:17] LABS: Basophils % 0.3 %; Eosinophils % 0.3 %; Hematocrit 32.9 % (35.3-44.9); Hemoglobin 10.4 g/dL (11.5-15.4); Immature Granulocytes % 0.3 % (0-4); Lymphocytes # 1.2 K/mcL (0.6-4.6); Lymphocytes % 20.5 %; Mean Corpuscular HGB Conc 31.6 g/dL (31.6-35.5); Mean Corpuscular Hemoglobin 30.4 pg (28.0-33.3); Mean Corpuscular Volume 96.2 fL (83.0-100.0); Monocytes # 0.5 K/mcL (0.0-1.3); Platelet Count 168 K/mcL (140-400); Red Blood Count 3.42 M/mcL (3.82-4.97); Red Cell Distribution Width 13.2 % (11.5-14.5); Segmented Neutrophils % 70.6 %; White Blood Count 5.7 K/mcL (4.3-11.1)
[2022-02-13 06:31] LABS: Alanine Aminotransferase 15 Units/L (7-52); Albumin/Globulin Ratio 1.2 (1.1-2.2); Alkaline Phosphatase 53 Units/L (34-104); Aspartate Amino Transferase 17 Units/L (13-39); BUN/Creatinine Ratio 27 (6-26); Bilirubin,Direct 0.2 mg/dL (0.0-0.2); Bilirubin,Indirect 0.5 mg/dL (0.0-1.0); Bilirubin,Total 0.7 mg/dL (0.3-1.0); Blood Urea Nitrogen 18 mg/dL (8-23); Calcium 8.5 mg/dL (8.6-10.3); Carbon Dioxide 29 mEq/L (23-29); Chloride 105 mEq/L (98-107); Globulin 2.5 g/dL (2.4-3.5); Glucose 91 mg/dL (70-105); Osmolality,Calculated 289 (280-300); Potassium 3.8 mEq/L (3.5-5.1); Sodium 139 mEq/L (136-145); Total Protein 5.5 g/dL (6.4-8.9); eGFR For African Americans > 60 (> 60); eGFR For Non-African Americans > 60 (> 60)
[2022-02-13] MEDS: Remdesivir 100 MG in 0.9 % Sodium Chloride 100 ML IVPB SCH (06:51)
[2022-02-13] MEDS: *HR* Heparin 5,000 UNIT/ML VIAL IVP PRN (06:54)
[2022-02-13 07:05] VITALS: BP 109/52; PULSE 76; TEMP 98
[2022-02-13] MEDS: Aspirin 81 MG TAB.CHEW PO SCH (08:28)
[2022-02-13] MEDS: Dexamethasone Sodium Phos/PF 10 MG/ML VIAL IVP SCH (08:28)
[2022-02-13] MEDS ORDERED: Cholecalciferol (D-3) 1,000 UNIT (25MCG) TABLET PO SCH (09:00)
[2022-02-13 17:33] VITALS: O2SAT 95
== END 2022-02-13 18:57 | disposition home or self-care (01) | DRG 177 ==
LOC: 3ANU 15:26 → EMEROOARM 15:26 → SUATTDRO 20:10 → 3ANU 21:00 → 2NENU 02-11 04:44
PROVIDERS: ADMIT Internal Medicine; ATTEND Internal Medicine